=== PATIENT | male | born 1945 | race Caucasian/White ===

== ENCOUNTER 2016-10-03 14:29 | Inpatient (IN) | payer MEDICARE, OTHER ==
[~2016-10-03] VITALS: Ht 188 cm; Wt 91.2 kg
[~2016-10-03 14:29] MED LIST: ACETAMINOPHEN325 MG PO; BAYER CHEWABLE81 MG PO; CIPRO500 MG PO; COUMADIN3 MG PO; COUMADIN5 MG PO; COUMADIN6 MG PO; CYCLOBENZAPRINE5 MG PO; FIBRICOR105 MG PO; FLAGYL500 MG PO; FLOMAX0.4 MG PO; GLIPIZIDE10 MG PO; GLUCOPHAGE500 MG PO; GLUCOTROL XL 1010 MG PO; HYDROCODONE-APA1 TAB PO; KLOR-CON 1010 MEQ PO; KLOR-CON M2020 MEQ PO; LASIX40 MG PO; LEVAQUIN750 MG PO; LISINOPRIL10 MG PO; MIRALAX17 GM PO; NEURONTIN 300300 MG PO; PERCOCET 10/3251 TA1 PO; PLAVIX75 MG PO; PRAVACHOL20 MG PO; PRILOSEC20 MG PO; PRINIVIL20 MG PO; PROTONIX40 MG PO; TOPROL XL50 MG PO; TRIPLE ANTIB28.35 GM TP; ULTRAM50 MG PO; VANCOMYCIN 1 GM/1 G1 IV; ZOFRAN4 MG PO
[2016-10-03 22:09] VITALS: BP 116/72; BMI 25.8
[2016-10-04] VITALS: BP 122/71
[2016-10-04 00:56] LABS: BASOPHILS 0.3 % (0.0-2.0); EOSINOPHILS 0.7 % (0-7); HEMATOCRIT 38.3 % (42.0-54.0); HEMOGLOBIN 12.3 g/dL (13.5-17.5); LYMPHOCYTES 22.7 % (15-50); MCH 27.3 pg (26.0-34.0); MCHC 32.1 g/dL (31.0-37.0); MCV 85.1 fL (80.0-100.0); MEAN PLATELET VOLUME 9.2 fL (7.4-10.4); MONOCYTES 14.7 % (2-11); NEUTROPHILS 60.6 % (40-80); RDW 15.4 % (11.5-14.5); WBC 2.9 10x3/uL (4.8-10.8)
[2016-10-04 01:01] LABS: INR 2.39 (0.85-1.17); PROTIME 26.2 SECONDS (11.6-15.0)
[2016-10-04 01:04] LABS: ALBUMIN 2.9 g/dL (3.4-5.0); ALKALINE PHOSPHATASE 40 U/L (46-116); ALT (SGPT) 26 U/L (10-68); CALC OSMOLALITY 269 mosm/kg (275-300); CALCIUM 8.3 mg/dL (8.5-10.1); CARBON DIOXIDE 23.4 mmol/L (21.0-32.0); CHLORIDE - SERUM 102 mmol/L (98-107); POTASSIUM - SERUM 3.3 mmol/L (3.5-5.1); PROTEIN - SERUM 6.8 g/dL (6.4-8.2); SODIUM 136 mmol/L (136-145); UREA NITROGEN 13 mg/dL (7-18); eGFR NON AFRICAN AMERICAN 78 mL/min (90-120)
[2016-10-04 01:05] LABS: PLATELET COUNT 151 10x3/uL (130-400)
[2016-10-04 01:07] LABS: GLUCOSE 67 mg/dL (74-106)
[2016-10-04 01:17] LABS: CKMB 0.8 U/L (0.0-3.6)
--- NOTE | 2016-10-04 02:57 | NUR ---
1999)PATIENT APPEARED VIA W/C WITH ER POT FLUXER TO RM 2225."STATES DIRECT ADMIT FROM DR. BAI OFFICE.ALERT ORIENTED X3. IN ATTENDANCE.LEFT AKA OBSERVED.IV STARTED LEFT FOREARM X3 ATTEMPTS. DENIES PAIN OR NAUSEA AT PRESENT TIME.
[2016-10-04 04:00] VITALS: BP 145/78
--- NOTE | 2016-10-04 07:00 | NUR ---
PT REC'D FROM CHARO NEWMAN. AAOX4. LAYING IN BED WITH EYES CLOSED. IN ROOM. NO COMPLAINTS OF PAIN. ABD ROUND, FIRM, WITH SOME TENDERNESS TO PALPATION, BOWEL SOUNDS ACTIVE. OLD LT AKA. ALERTED BY CHARO NEWMAN, THAT CURRENT FSBS IS 67. WILL CONTINUE TO MONITOR. BED LOW, CALL LIGHT IN REACH, WILL CPOC.
[2016-10-04 07:17] LABS: INR 2.59 (0.85-1.17); PROTIME 27.9 SECONDS (11.6-15.0)
[2016-10-04 07:42] LABS: CKMB 0.9 U/L (0.0-3.6)
[2016-10-04 09:06] VITALS: BP 132/77
--- NOTE | 2016-10-04 10:15 | NUR ---
MORNING MEDS PASSED. PROVIDED PT WITH ORANGE JUICE TO DRINK WITH MEDS TO HELP BRING BLOOD SUGAR UP. WILL CONTINUE TO MONITOR.
--- NOTE | 2016-10-04 10:25 | NUR ---
CURRENT FSBS 84. NO INSULIN GIVEN PER SS AND NPO STATUS. WILL CPOC.
[2016-10-04 11:01] VITALS: Ht 188 cm; Wt 91.2 kg
[2016-10-04 12:26] VITALS: BP 132/77
--- NOTE | 2016-10-04 13:00 | NUR ---
CURRENT FSBS 92. NO INSULIN GIVEN PER SS AND NPO STATUS. WILL CPOC.
[2016-10-04 14:31] LABS: CKMB 1.1 U/L (0.0-3.6)
[2016-10-04 16:13] VITALS: BP 127/77
--- NOTE | 2016-10-04 17:40 | NUR ---
CURRENT FSBS 71. NO INSULIN GIVEN PER SS AND NPO STATUS. WILL CPOC.
--- NOTE | 2016-10-04 17:47 | NUR ---
QUIET IN ROOM AT PRESENT RESP EVEN AND UNLABORED AT PRESENT N/C.
[2016-10-04 19:00] VITALS: BP 157/81
--- NOTE | 2016-10-04 20:26 | NUR ---
REPORT GIVEN TO CHARO NEWMAN.
--- NOTE | 2016-10-05 01:10 | NUR ---
PT SLEEPING. NO SIGNS OF DISTRESS. RESPIRATIONS EVEN AND UNLABORED. BED LOW, CALL LIGHT IN REACH.
[2016-10-05 04:00] VITALS: BP 135/74
--- NOTE | 2016-10-05 07:00 | NUR ---
PT REC'D FROM CHARO NEWMAN. RESTING IN BED WITH EYES CLOSED. IN ROOM. NO SIGNS OF DISTRESS. RESP EVEN AND UNLABORED. BED LOW, CALL LIGHT IN REACH, WILL CPOC.
[2016-10-05 07:36] LABS: BASOPHILS 0.2 % (0.0-2.0); EOSINOPHILS 0.5 % (0-7); HEMATOCRIT 37.5 % (42.0-54.0); HEMOGLOBIN 11.9 g/dL (13.5-17.5); IMMATURE GRANULOCYTES 0.5 % (0-5); MCHC 31.7 g/dL (31.0-37.0); MCV 85.2 fL (80.0-100.0); MEAN PLATELET VOLUME 9.4 fL (7.4-10.4); MONOCYTES 17.8 % (2-11); PLATELET COUNT 160 10x3/uL (130-400); RDW 15.3 % (11.5-14.5); WBC 4.2 10x3/uL (4.8-10.8)
[2016-10-05 07:39] LABS: INR 2.72 (0.85-1.17)
[2016-10-05 08:00] LABS: ALBUMIN 2.5 g/dL (3.4-5.0); ALKALINE PHOSPHATASE 38 U/L (46-116); AMYLASE - SERUM 27 U/L (25-115); CALC OSMOLALITY 271 mosm/kg (275-300); CALCIUM 7.7 mg/dL (8.5-10.1); CARBON DIOXIDE 21.7 mmol/L (21.0-32.0); CHLORIDE - SERUM 104 mmol/L (98-107); GLUCOSE 78 mg/dL (74-106); LIPASE 86 U/L (73-393); MAGNESIUM - SERUM 1.5 mg/dL (1.8-2.4); PHOSPHOROUS 2.6 mg/dL (2.5-4.9); PROTEIN - SERUM 6.1 g/dL (6.4-8.2); SODIUM 137 mmol/L (136-145); THYROID STIMULATING HORMONE 1.25 uIU/mL (0.36-3.74); UREA NITROGEN 11 mg/dL (7-18); eGFR NON AFRICAN AMERICAN 78 mL/min (90-120)
[2016-10-05 08:02] LABS: ALT (SGPT) 34 U/L (10-68); POTASSIUM - SERUM 3.8 mmol/L (3.5-5.1)
[2016-10-05 08:22] VITALS: BP 159/98
--- NOTE | 2016-10-05 11:30 | NUR ---
MORNING MEDS PASSED. PT UP IN BED WATCHING TV. AAOX4. NO COMPLAINTS OF PAIN. ORANGE JUICE GIVEN WITH MORNING MEDS TO PREVENT BLOOD SUGAR FROM DROPPING. CURRENT FSBS 88. NO INSULIN GIVEN PER SS AND NPO STATUS. BED LOW, CALL LIGHT IN REACH, WILL CPOC.
[2016-10-05 12:23] VITALS: BP 132/68
[2016-10-05 16:38] VITALS: BP 139/70
--- NOTE | 2016-10-05 17:50 | NUR ---
CURRENT FSBS 82. NO INSULIN GIVEN PER SS AND NPO STATUS. WILL CPOC.
[2016-10-05 18:21] LABS: APPEARANCE CLEAR (CLEAR); BILIRUBIN NEGATIVE (NEGATIVE); COLOR YELLOW (YELLOW); GLUCOSE NEGATIVE (NEGATIVE); KETONE NEGATIVE (NEGATIVE); LEUKOCYTE ESTERASE TRACE (NEGATIVE); NITRITE NEGATIVE (NEGATIVE); PROTEIN NEGATIVE (NEGATIVE); SPECIFIC GRAVITY 1.015 (1.005-1.020); UROBILINOGEN NORMAL (NORMAL)
[2016-10-05 18:22] LABS: BACTERIA NONE SEEN /hpf (NONE SEEN); EPITHELIAL CELLS NSEEN /hpf (0-5); RED CELLS - URINE 0-5 /hpf (0-5); WHITE CELLS - URINE 0-5 /hpf (0-5)
[2016-10-05 19:00] VITALS: BP 137/66
--- NOTE | 2016-10-05 19:39 | NUR ---
PT REPORT GIVEN TO CHARO NEWMAN.
--- NOTE | 2016-10-05 19:49 | NUR ---
REC'D. IN BED REMAINS AT BEDSIDE,REMAINS NPO PREVIOUSLY ORDERED.DENIES ANY PAIN OR DISCOMFORT AT PRESENT TIME WILL CONTINUE TO MONITOR FOR ANY CHGES. AND FOLLOW CURRENT PLAN OF CARE.
--- NOTE | 2016-10-06 01:55 | NUR ---
RESTING WITH EYES CLOSED, RESP WITH EASE, NO DISTRESS NOTED, SAFETY PRECAUTIONS IN PLACE, CL IN REACH
[2016-10-06 04:59] LABS: BASOPHILS 0.2 % (0.0-2.0); EOSINOPHILS 1.2 % (0-7); HEMATOCRIT 37.2 % (42.0-54.0); HEMOGLOBIN 11.8 g/dL (13.5-17.5); IMMATURE GRANULOCYTES 0.2 % (0-5); LYMPHOCYTES 14.9 % (15-50); MCH 26.8 pg (26.0-34.0); MCHC 31.7 g/dL (31.0-37.0); MCV 84.4 fL (80.0-100.0); MEAN PLATELET VOLUME 9.7 fL (7.4-10.4); MONOCYTES 14.7 % (2-11); NEUTROPHILS 68.8 % (40-80); PLATELET COUNT 151 10x3/uL (130-400); RBC 4.41 10x6/uL (4.20-6.10); RDW 15.6 % (11.5-14.5)
[2016-10-06 05:11] LABS: INR 2.78 (0.85-1.17); PROTIME 29.5 SECONDS (11.6-15.0)
[2016-10-06 05:32] LABS: ALBUMIN 2.6 g/dL (3.4-5.0); ALKALINE PHOSPHATASE 41 U/L (46-116); ALT (SGPT) 35 U/L (10-68); BILIRUBIN - TOTAL 0.48 mg/dL (0.2-1.3); CALC OSMOLALITY 276 mosm/kg (275-300); CALCIUM 7.8 mg/dL (8.5-10.1); CARBON DIOXIDE 19.9 mmol/L (21.0-32.0); CHLORIDE - SERUM 105 mmol/L (98-107); GLUCOSE 85 mg/dL (74-106); POTASSIUM - SERUM 3.9 mmol/L (3.5-5.1); PROTEIN - SERUM 5.6 g/dL (6.4-8.2); SODIUM 140 mmol/L (136-145); UREA NITROGEN 9 mg/dL (7-18); eGFR NON AFRICAN AMERICAN 78 mL/min (90-120)
--- NOTE | 2016-10-06 07:15 | NUR ---
SLEEPING QUIETLY AT PRESENT DENIES ANY NEEDS AT THIS TIME.
--- NOTE | 2016-10-06 09:00 | NUR ---
MEDS GIVEN WITH SIP OF H20 AT PRESENT.
[2016-10-06 10:20] VITALS: BP 125/68
--- NOTE | 2016-10-06 12:20 | NUR ---
Patient Name: HESHAM CARUSO Admission Status: Elective Accout number: [id number] Admission Date: 10-03-2016 : 1945 Admission Diagnosis: Attending: BUTCH Current LOS: 3 Anticipated DC Date: Planned Disposition: Home Primary Insurance: MEDICARE A & B Discharge Planning Comments: CM MET WITH PATIENT AND (RITA) WITH D/C NEEDS AND PLANS. STATED SHE WILL DRIVE PATIENT HOME AT DISCHARGE. PATIENT HAS A RAMP TO ENTER HOME AND NO STAIRS INSIDE. PATIENT HAS A WHEELCHAIR, HANDICAP SHOWER, AND BS COMMODE AT HOME IF NEEDED. PATIENTS PCP IS DR. BAI AND PHARMACY IS [facility] [address]. PATIENT DOES NOT WANT HOME HEALTH. CM WILL CONTINUE TO FOLLOW PATIENT WITH D/C NEEDS AND PLANS. PCP DR. [facility] [address] [phone]) RITA (SPOUSE) [phone] Sales Floor Manager: Ni Hartman Is the patient Alert and Oriented? Yes 0 * How many steps to enter\exit or inside your home? RAMP 0 * PCP DR. BAI 0 * Pharmacy [facility] [address] 0 * Preadmission Environment Home with Family 0 * ADLs Independent 0 * Equipment Bedside Commode Wheelchair 0 * Other Equipment HANDICAP SHOWER 0 * List name and contact numbers for known caregivers / representatives who currently or will assist patient after discharge: RITA (SPOUSE) [phone] 0 * Community resources currently utilized None 0 * Additional services required to return to the preadmission environment? Yes 0 * Can the patient safely return to the preadmission environment? Yes 0 * Has this patient been hospitalized within the prior 30 days at any hospital? No 0 Grand Total: 0
--- NOTE | 2016-10-06 13:00 | NUR ---
QUIET N/C AT PRESENT.
--- NOTE | 2016-10-06 13:49 | NUR ---
NUTRITION MONITORING & EVAL CHART REVIEWED. PT REMAINS NPO AT THIS TIME. WILL CONTINUE TO MONITOR PT PROGRESS. RD FOLLOWING
[2016-10-06 13:50] VITALS: BP 136/61
--- NOTE | 2016-10-06 15:00 | NUR ---
TO CT FOR TEST AT PRESENT.
--- NOTE | 2016-10-06 17:00 | NUR ---
CONT NPO AT PRESENT N/C VOICED AT PRESENT.
--- NOTE | 2016-10-06 19:00 | NUR ---
QUIET IN ROOM CONT NPO AT PRESENT DENIES ANY NEEDS AT THIS TIME AT BEDSIDE.
[2016-10-06 21:00] VITALS: BP 143/76
[2016-10-07 01:00] VITALS: BP 138/66
[2016-10-07 05:00] VITALS: BP 135/51
--- NOTE | 2016-10-07 05:49 | NUR ---
PT IN BED WITH NO DISTRESS. SIDE RAILS ARE UP X 2. BED IS LOW. CALL LIGHT IS IN REACH.
[2016-10-07 06:45] LABS: BASOPHILS 0.2 % (0.0-2.0); EOSINOPHILS 3.4 % (0-7); HEMATOCRIT 36.6 % (42.0-54.0); HEMOGLOBIN 11.6 g/dL (13.5-17.5); IMMATURE GRANULOCYTES 0.5 % (0-5); LYMPHOCYTES 18.6 % (15-50); MCH 26.8 pg (26.0-34.0); MCHC 31.7 g/dL (31.0-37.0); MCV 84.5 fL (80.0-100.0); MEAN PLATELET VOLUME 9.5 fL (7.4-10.4); MONOCYTES 14.8 % (2-11); NEUTROPHILS 62.5 % (40-80); PLATELET COUNT 147 10x3/uL (130-400); RBC 4.33 10x6/uL (4.20-6.10); RDW 15.5 % (11.5-14.5); WBC 4.4 10x3/uL (4.8-10.8)
[2016-10-07 06:52] LABS: INR 2.94 (0.85-1.17); PROTIME 30.9 SECONDS (11.6-15.0)
[2016-10-07 07:17] LABS: ALBUMIN 2.3 g/dL (3.4-5.0); ALKALINE PHOSPHATASE 37 U/L (46-116); BILIRUBIN - TOTAL 0.47 mg/dL (0.2-1.3); CALC OSMOLALITY 276 mosm/kg (275-300); CALCIUM 8.1 mg/dL (8.5-10.1); CHLORIDE - SERUM 106 mmol/L (98-107); CREATININE - SERUM 0.9 mg/dL (0.6-1.3); GLUCOSE 97 mg/dL (74-106); POTASSIUM - SERUM 3.8 mmol/L (3.5-5.1); PROTEIN - SERUM 5.7 g/dL (6.4-8.2); SODIUM 140 mmol/L (136-145); UREA NITROGEN 8 mg/dL (7-18); eGFR NON AFRICAN AMERICAN 88 mL/min (90-120)
[2016-10-07 07:22] LABS: ALT (SGPT) 26 U/L (10-68)
--- NOTE | 2016-10-07 08:00 | NUR ---
PT AWAKE AND ALERT ORIENTED X 3 LUNG CLEAR BILATERALLY ABD SOFT WITH SOME TENDERNESS NOTED WITH PALPATION. REMAINS NPO EXCEPT FOR MEDS. WILL CONTINUE TO MONITOR.
[2016-10-07 08:29] VITALS: BP 127/71
--- NOTE | 2016-10-07 13:12 | NUR ---
PT WITH NO DISTRESS NOTED VOICES ALL NEEDS TO STAFF. WILL CONTINUE TO MONITOR.
[2016-10-07 13:36] VITALS: BP 140/72
[2016-10-07 15:59] VITALS: BP 110/53
[2016-10-07 19:00] VITALS: BP 141/71
[2016-10-08 04:00] VITALS: BP 133/77
[2016-10-08 05:17] LABS: BASOPHILS 0.2 % (0.0-2.0); EOSINOPHILS 2.9 % (0-7); HEMATOCRIT 35.7 % (42.0-54.0); HEMOGLOBIN 11.5 g/dL (13.5-17.5); IMMATURE GRANULOCYTES 0.6 % (0-5); LYMPHOCYTES 20.8 % (15-50); MCH 27.1 pg (26.0-34.0); MCHC 32.2 g/dL (31.0-37.0); MEAN PLATELET VOLUME 9.4 fL (7.4-10.4); MONOCYTES 13.9 % (2-11); NEUTROPHILS 61.6 % (40-80); PLATELET COUNT 171 10x3/uL (130-400); RBC 4.25 10x6/uL (4.20-6.10); RDW 15.6 % (11.5-14.5); WBC 4.8 10x3/uL (4.8-10.8)
[2016-10-08 05:29] LABS: PROTIME 25.7 SECONDS (11.6-15.0)
[2016-10-08 05:31] LABS: INR 2.34 (0.85-1.17)
[2016-10-08 05:47] LABS: ALBUMIN 2.4 g/dL (3.4-5.0); ALKALINE PHOSPHATASE 41 U/L (46-116); ALT (SGPT) 24 U/L (10-68); BILIRUBIN - TOTAL 0.36 mg/dL (0.2-1.3); CALC OSMOLALITY 279 mosm/kg (275-300); CARBON DIOXIDE 22.8 mmol/L (21.0-32.0); CHLORIDE - SERUM 108 mmol/L (98-107); CREATININE - SERUM 0.8 mg/dL (0.6-1.3); GLUCOSE 137 mg/dL (74-106); POTASSIUM - SERUM 3.9 mmol/L (3.5-5.1); PROTEIN - SERUM 5.3 g/dL (6.4-8.2); SODIUM 140 mmol/L (136-145); UREA NITROGEN 9 mg/dL (7-18); eGFR NON AFRICAN AMERICAN > 90 mL/min (90-120)
[2016-10-08 08:24] VITALS: BP 146/76
--- NOTE | 2016-10-08 08:30 | NUR ---
REPORT RECIEVED ASSUMED CARE. PATIENT IN BED WITH IV INTACT. NO COMPLAINTS AT THIS TIME. FAMILY AT BEDSIDE. CALL LIGHT WITHIN REACH.
[2016-10-08] MEDS ORDERED: CIPRO500 MG PO (12:32)
[2016-10-08] MEDS ORDERED: PEPCID20 MG PO (12:40)
--- NOTE | 2016-10-08 14:00 | NUR ---
PATIENT RECIEVED DISCHARGE INSTRUCTIONS. IV REMOVED WITH CATH TIP INTACT. NO QUESTIONS AT THIS TIME. FAMILY AT BEDSIDE. PRESCRIPTIONS GIVEN TO PATIENT. CALL LIGHT WITHIN REACH. AWAITING WC FOR DC.
--- NOTE | 2016-10-08 15:27 | DS ---
PATIENT:HESHAM CARUSO :41 MEDICAL RECORD: [id number] DISCHARGE SUMMARY ADMISSION DATE: 10/03/16 DISCHARGE DATE: DATE OF ADMISSION: 10/03/2016 DATE OF DISCHARGE: 10/08/2016 ADMITTING DIAGNOSES: 1. Abdominal abscess. 2. Abdominal pain. 3. Leukopenia. 4. Elevated PSA. 5. Ileus. 6. Diverticulitis. 7. 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 8. Coronary artery disease, chronic problem. 9. Diabetes. 10. Hyperlipidemia. 11. Hypertension. 12. Peripheral vascular disease on chronic Coumadin. 13. History of aortic aneurysm. HOSPITAL COURSE: This is a 71-year-old white male, patient of Dr. Toro, admitted from the office with diagnoses as outlined above. Details are well-outlined in the history of the present illness, H&P. All events, lab procedures, diagnostic testing are well documented in the records. The patient was admitted, started on IV antibiotics. CONSULTANTS: 1. Dr. Woods, interventional radiology. His recommendations were followed. He felt the abscess in the abdomen was too small to drain, please refer to his note. 2. Dr. Jalil Navarrete with surgery. His recommendations were followed as well. The left upper quadrant fluid collection is felt to be more consistent with hematoma or inflammatory phlegmon as oppose to drainable abscess. No treatment is necessary at this time except to continue antibiotics. 3. He was continued on Flagyl and Levaquin. Apparently, he had some diarrhea during the stay that was felt due to a combination of metformin, omeprazole, and cholecystectomy. Dr. Henderson rounding for Dr. Navarrete recommended stopping omeprazole and adding Pepcid. His antibiotics were continued for urinary tract infection. He was also felt to have prostatitis, had elevated PSA levels. INRs were followed daily. He remained therapeutic. He is stable for dismissal home today. He already has about a week's worth of Flagyl and Cipro at home. He will complete that plus an additional 21-day course of Cipro. He is stable for dismissal home. DIAGNOSES AT DISCHARGE: 1. Abdominal abscess. 2. Abdominal pain. 3. Leukopenia. 4. Ileus. 5. Diverticulitis. 6. Atherosclerosis of [place] arteries of extremity with rest pain that is a DISCHARGE SUMMARY REPORT [id number] HESHAM CARUSO chronic problem. 7. Coronary artery disease, chronic problem. 8. Diabetes. 9. Hyperlipidemia. 10. Hypertension. 11. Peripheral vascular disease on chronic Coumadin. 12. History of aortic aneurysm. 13. Elevated PSA and urinary tract infection felt more likely to be prostatitis. 14. Abdominal hematoma. Greater than 30 minutes was spent on this discharge. TRANSINT:[id number] Voice Confirmation ID: [id number] DOCUMENT ID: [id number] Dictated By: JEANNETTE DIXON RN I have interviewed/examined the above patient and agree with these documented findings. ANGELINA RIGGINS MD at 1527 at 1554 CC: [id number] DICTATION DATE: 10/08/16 1240 ART CLASS MODEL: 10/08/16 1302 ADM IN [facility] [address] [id number]
--- NOTE | 2016-10-08 15:55 | NUR ---
LATE ENTRY: PATIENT DISCHARGED HOME TODAY - DRIVING HIM HOME. PATIENT REF HOME HEALTH.
== END 2016-10-08 15:34 | disposition home or self-care (01) | DRG 388 ==
LOC: D.CT 14:29 → D.MS 19:36
PROVIDERS: Family Medicine; ADMIT Family Medicine
DX: K56.7 Ileus, unspecified (principal); K65.1 Peritoneal abscess; K57.92 Diverticulitis of intestine, part unspecified, without perforation or abscess without bleeding; N39.0 Urinary tract infection, site not specified; I70.229 Atherosclerosis of native arteries of extremities with rest pain, unspecified extremity; E11.9 Type 2 diabetes mellitus without complications; I25.10 Atherosclerotic heart disease of native coronary artery without angina pectoris; I10 Essential (primary) hypertension; N41.9 Inflammatory disease of prostate, unspecified; I71.4 Abdominal aortic aneurysm, without rupture; E78.5 Hyperlipidemia, unspecified

== ENCOUNTER → 2017-07-27 08:39 | Outpatient (CLI) | payer MEDICARE, OTHER ==
[2016-10-04 11:01] VITALS: BMI 25.8
[~2017-07-27 08:39] MED LIST changes: +PEPCID20 MG PO
== END | disposition home or self-care (01) ==
LOC: D.CT 08:39
DX: I71.4 Abdominal aortic aneurysm, without rupture (principal)

== ENCOUNTER → 2017-08-18 08:42 | Outpatient (CLI) | payer MEDICARE, OTHER ==
[2016-10-04 11:01] VITALS: BMI 25.8
--- NOTE | 2017-09-01 08:55 | EC ---
PATIENT:HESHAM CARUSO DATE OF SERVICE: 08/18/17 SEX: M MEDICAL RECORD: [id number] DATE OF : 41 LOCATION:[facility] AGE OF PATIENT: 72 ADMISSION DATE: 08/18/17 REFERRING PHYSICIAN: INTERPRETING PHYSICIAN: VADIM DIAZ MD ECHOCARDIOGRAM REPORT ECHO CHARGES 4 ECHO COMPLETE CLINICAL DIAGNOSIS: CAD/CABG/BRADYCARDIA/CHEST PAIN/PVD ECHOCARDIOGRAPHIC MEASUREMENTS (adult normal given) AC root (d.<3.7cm) 4.2 cm LV Septum d (<1.2 cm> 1.3 cm Valve Excursion 2.0 cm LV Septum (systole) 1.5 cm Left Atria (s.<4.0cm> 3.7 cm LVPW d(<1.2cm) 1.4 cm RV (d.<2.3cm) 4.2 cm LVPW (sytole) 1.7 cm LV diastole(<5.6CM) 7.4 cm MV E-F(>70mm/sec) cm LV systole 5.9 cm LVOT Diameter 2.2 cm MV exc.(>10mm) 2.0 cm Est.ejection fraction (50-75%) % Pericardial Effusion N DOPPLER: LVIT cm/sec A 28.0 cm/sec E 80.0 cm/sec LA cm/sec RVSP 51 mmHg LVOT 108 cm/sec AOP1/2T m/s Asc. Ao 132 cm/sec RVOT 55 cm/sec RA cm/sec PA 116 cm/sec AV Gradient Peak 9.94 mmHg AV Mean 3.55 mmHg AV Area 3.9 cm MV Gradient Peak 5.18 mmHg MV Mean 1.45 mmHg MV Area cm COMMENTS: Printing Roller Handler: Fan CASTRO Exhibition Organiser: 4 Dr. Diaz TAPE# PACS DATE OF SERVICE: 08/18/2017 PROCEDURE: Transthoracic echocardiogram. FINDINGS: 1. Left ventricle is mildly dilated. There is inferior basilar dyskinesis. The overall ejection fraction is 35% to 40%. 2. The left atrium is mildly dilated. There is mild mitral regurgitation. 3. Pulmonic valve shows moderate pulmonic insufficiency. 4. The tricuspid valve was not well visualized. There is mild tricuspid ECHOCARDIOGRAM REPORT [id number] HESHAM CARUSO regurgitation. The RVSP was difficult to ascertain. There were no very good envelopes of tricuspid regurgitation for estimation, but appears to be mildly elevated. 5. The right atrium is shown to be mildly dilated. There is moderate dilatation of the right ventricle. Aortic valve again was difficult to visualize. It is grossly normal. There is trace aortic insufficiency. 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 Overall ejection fraction is moderately reduced. There is dilatation of the right-sided structures and possibly mild elevation in the pulmonary pressures. TRANSINT:[id number] Voice Confirmation ID: [id number] DOCUMENT ID: [id number] VADIM DIAZ MD at 0855 CC: [id number] DICTATION DATE: 08/20/17 0801 SIGNAL TECHNICIAN: 08/20/17 1010 [facility] CLI 08/18/17 [id number] [place] [address]
== END | disposition home or self-care (01) ==
LOC: D.ECHO 08:42
DX: I25.10 Atherosclerotic heart disease of native coronary artery without angina pectoris (principal); R07.9 Chest pain, unspecified; I73.9 Peripheral vascular disease, unspecified; R00.1 Bradycardia, unspecified

== ENCOUNTER → 2017-08-31 16:10 | Outpatient (CLI) | payer MEDICARE, OTHER ==
[2016-10-04 11:01] VITALS: BMI 25.8
[2017-08-31 20:27] LABS: CHOL - HDL RATIO 4.2 ratio (2.3-4.9); LDL-HDL RATIO 2.3 ratio (1.5-3.5)
== END | disposition home or self-care (01) ==
LOC: D.LABREF 16:10
PROVIDERS: Internal Medicine Cardiovascular Disease
DX: E78.5 Hyperlipidemia, unspecified (principal); I25.10 Atherosclerotic heart disease of native coronary artery without angina pectoris

== ENCOUNTER → 2017-10-21 16:47 | Outpatient (CLI) | payer MEDICARE, OTHER ==
[2016-10-04 11:01] VITALS: BMI 25.8
[2017-10-21 17:26] LABS: ALBUMIN 4.2 g/dL (3.4-5.0); BILIRUBIN - DIRECT 0.19 mg/dL (0.00-0.30); BILIRUBIN - INDIRECT 0.33 mg/dL (0.00-1.00); BILIRUBIN - TOTAL 0.52 mg/dL (0.2-1.3); CHOL - HDL RATIO 4.3 ratio (2.3-4.9); LDL-HDL RATIO 2.5 ratio (1.5-3.5); PROTEIN - SERUM 7.5 g/dL (6.4-8.2)
== END | disposition home or self-care (01) ==
LOC: D.LABREF 16:47
PROVIDERS: Internal Medicine Cardiovascular Disease
DX: E78.5 Hyperlipidemia, unspecified (principal)

== ENCOUNTER 2017-11-16 17:38 | Inpatient (IN) | payer MEDICARE, OTHER ==
--- NOTE | ~2017-11-16 | HEMODYNAMI ---
PATIENT:HESHAM CARUSO MEDICAL RECORD: [id number] : 41 [address] [id number] ADMISSION DATE: 11/16/17 Generatedon:11/17/201713:02 Patient name: HESHAM CARUSO Patient #: [id number] SSN: : 1945 Date of study: 11/17/2017 Page: Of Hemodynamic Procedure Report Patient Data Patient Demographics Procedure consent was obtained First Name: HESHAM Gender: Male Last Name: SHADY : 1945 [facility] Initial: CARLOTA Age: 72 year(s) Patient #: [id number] Race: Additional ID: [id number] Contact details Address: [address] [address] State: [place] City: [place] Zip code: [address] Past Medical History Allergies: No known allergies Admission Admission Data Admission Date: 11/16/2017 Admission Time: 21:21 Room #: D.2136 Lab Results Lab Result Date: 11/17/2017 Lab Result Time: 0:00 Biochemistry Name Units Result Min Max BUN mg/dl 16 --(---*)-- 7 18 Creatinine mg/dl 1.1 --(--*-)-- 0.6 1.3 CBC Name Units Result Min Max Hemoglobin g/dl 13.8 --(*---)-- 13.5 17.5 Procedure Procedure Types Cath Procedure Diagnostic Procedure LHC LH w/Coronaries w/Grafts PCI Procedure Coronary Stent Coronary Stent Initial Miscellaneous Procedures Moderate Sedation up to 45 minutes Peripheral Cath Diagnostic Procedure Cath Peripheral Xjwqv-Eyiztnr-Jdc-Off Procedure Description Procedure Date Procedure Date: 11/17/2017 Procedure Start Time: 12:03 Procedure End Time: 13:01 Procedure Staff Name Function Poli Walter MD Performing Physician Cathy Ford RT Monitor Kane Suarez RN Nurse Bienvenido Isidro RT Scrub Procedure Data Cath Procedure Fluoroscopy Diagnostic fluoroscopy Total fluoroscopy Time: time: 16.7 min 16.7 min Diagnostic fluoroscopy Total fluoroscopy dose: dose: 1619 mGy 1619 mGy Contrast Material Contrast Material Type Amount (ml) Isovue 300 209 Entry Location Entry Primary Successful Side Size Upsize Upsize Entry Closure Succes sful Closure Location (Fr) 1 (Fr) 2 (Fr) Remarks Device Remarks Femoral Right 5 Fr 6 Fr 6 Fr Exoseal artery Short Long Estimated blood loss: 10 ml Diagnostic catheters Device Type Used For End Catheter Placement MULTIPACK Pigtail 5 Fr Procedure catheter MULTIPACK JL 4.0 5Fr Procedure catheter MULTIPACK 3DRC 5Fr Procedure catheter Procedure Complications No complications Procedure Medications Medication Administration Route Dosage Oxygen NC 2 l/min Heparin Flush Bag added to field 2 bags (1000units/500ml NS) 0.9% NaCl I.V. 100 ml/hr Fentanyl I.V. 50 mcg Versed I.V. 1 mg Fentanyl I.V. 50 mcg Versed I.V. 1 mg Heparin Bolus I.V. 4000 units Integrilin (Bolus I.V. 8.5 ml 2mg/ml) Integrilin (Bolus wasted 1.5 ml 2mg/ml) Plavix P.O. 600 mg Hemodynamics Rest HGB: 13.8 (g/dl) Heart Rate: 74 (bpm) Snapshots Pre Cath Intra NCS Post Cath Vital Signs Time Heart Resp SPO2 etCO2 NIBP (mmHg) Rhythm Pain Sedation Rate (ipm) (%) (mmHg) Status Level (bpm) 11:50:02 73 16 98 0 162/90(133) NSR 0 (11) 10(A) , No pain 11:54:42 72 16 96 0 144/82(131) NSR 0 (11) 10(A) , No pain 11:59:21 74 15 94 24.1 144/84(120) NSR 0 (11) 10(A) , No pain 12:04:04 71 16 97 32.4 149/73(130) NSR 0 (11) 9(A) , No pain 12:08:45 73 15 91 33.1 145/83(119) NSR 0 (11) 9(A) , No pain 12:13:27 76 16 95 0 131/74(109) NSR 0 (11) 9(A) , No pain 12:18:08 76 16 93 24.1 144/68(97) NSR 0 (11) 9(A) , No pain 12:22:51 75 16 96 17.3 142/70(105) NSR 0 (11) 9(A) , No pain 12:27:31 74 19 94 13.5 134/70(111) NSR 0 (11) 9(A) , No pain 12:32:12 76 17 96 14.3 138/74(101) NSR 0 (11) 9(A) , No pain 12:36:50 78 15 95 29.4 144/80(117) NSR 0 (11) 9(A) , No pain 12:41:27 75 15 96 27.8 138/86(125) NSR 0 (11) 9(A) , No pain 12:46:05 79 16 97 27.8 149/81(117) NSR 0 (11) 10(A) , No pain 12:50:44 79 16 96 26.3 148/92(121) NSR 0 (11) 10(A) , No pain 12:51:52 80 16 97 34.6 154/93(141) NSR 0 (11) 10(A) , No pain 12:56:34 79 11 33.8 154/89(139) NSR 0 (11) 10(A) , No pain 13:01:17 79 10 31.6 151/87(138) NSR 0 (11) 10(A) , No pain Medications Time Medication Route Dose Verified Delivered Reason Notes Effectiveness by by 11:48:50 Oxygen NC 2 Poli Donnellyy Per physician l/min Jose Angel Suarez RN 11:48:58 Heparin Flush added 2 Poli Kane used for Bag to bags JoseA ngel Suarez RN procedure (1000units/500ml field NS) 11:49:07 0.9% NaCl I.V. 100 Poli Kane Per physician ml/hr Jose Angel Suarez RN 11:54:55 Fentanyl I.V. 50 Poli Kane for sedation mcg Jose Angel Suarez RN 11:55:02 Versed I.V. 1 mg Poli Donnellyy for sedation Jose Angel Suarez RN 12:03:19 Fentanyl I.V. 50 Poli Middleton for sedation mcg Jose Angel Suarez RN 12:03:58 Versed I.V. 1 mg Poli Middleton for sedation Tauth MD Suarez RN 12:24:04 Heparin Bolus I.V. 4000 Poli Middleton for units Jose Angel Suarez RN anticoagulation 12:24:19 Integrilin I.V. 8.5 Poli Middleton for (Bolus 2mg/ml) ml Jose Angel Suarez RN anticoagulation 12:24:30 Integrilin wasted 1.5 Poli Middleton for (Bolus 2mg/ml) ml Jose Angel Suarez RN anticoagulation 12:50:19 Plavix P.O. 600 Poli Middleton for mg Jose Angel Suarez RN antiplatelet therapy Procedure Log Time Note 11:27:54 Time tracking: Regular hours 11::59 Plan of Care:Hemodynamics will remain stable., Cardiac rhythm will remain stable., Comfort level will be maintained., Respiratory function will remain adequate., Patient/ family verbilizes understanding of procedure., Procedure tolerated without complication., Recovers from procedure without complications.. 11:28:02 Time tracking: Regular hours 11:28:03 Signed procedure consent form obtained from patient. 11::28 Lab Result : BUN 16 mg/dl 11::28 Lab Result : Creatinine 1.1 mg/dl 11::28 Lab Result : Hemoglobin 13.8 g/dl 11:29:34 Cathy Ford RT(R) sent for patient. Start room use. 11:48:50 Oxygen 2 l/min NC was administered by Kane Suarez RN; Per physician; 11:48:58 Heparin Flush Bag (1000units/500ml NS) 2 bags added to field was administered by Kane Suarez RN; used for procedure; 11:49:03 Patient received from Med II to CCL 1 Alert and oriented. Tansferred to table in Supine position. 11:49:07 0.9% NaCl 100 ml/hr I.V. was administered by Kane Suarez RN; Per physician; 11:49:08 Warm blankets applied, and hamiltno hugger turned on for patient comfort. 11:49:08 Correct patient and procedure confirmed by team. 11:49:09 ECG and BP/O2 sat monitors applied to patient. 11:49:11 Vital chart was started 11:49:12 Baseline sample Acquired. 11:49:18 Rhythm: sinus rhythm 11:53:18 Full Disclosure recording started 11:53:33 H&P Date Dictated: 11/17/2017 New H&P dictated by physician.. 11:53:34 Pre-procedure instructions explained to patient. 11:53:38 Family in patients room. 11:53:39 Patient NPO since Midnight. 11:53:46 Patient allergic to No known allergies 11:53:48 Is the patient allergic to Iodine/contrast media? No. 11:53:49 Is patient on blood thinner?Yes 11:54:01 COUMADIN HELD SINCE THURSDAY 11:54:03 Patient diabetic? Yes. 11:54:04 If diabetic: On Metformin? Yes 11:54:06 If on Metformin: Last Dose? 11/16/2017 11:54:09 Previous problem with sedation/anesthesia? No ? 11:54:10 Snore? Yes 11:54:11 Sleep apnea? No 11:54:12 Deviated septum? No 11:54:13 Opens mouth fully? Yes 11:54:13 Sticks out tongue? Yes 11:54:15 Airway obstruction? No ? 11:54:18 Dentures? No ? 11:54:20 Pre procedure: right dorsailis pedis pulse 2+ Normal; easily identifiable; not easily obliterated 11:54:23 Patient pain scale 0/10 ?. 11:54:32 IV patent on arrival in left forearm with 0.9% NaCl at [facility]. 11:54:35 Lab results completed and on chart. 11:54:38 Right groin area was prepped with chlora-prep and draped in sterile fashion 11:54:40 Alarms reviewed by R. N. 11:54:41 Sharps counted by scrub and verified by R.N. 11:54:43 --------ALL STOP TIME OUT------ 11:54:43 Final Timeout: patient, procedure, and site verified with staff and physician. All members of the team are in agreement. 11:54:45 Right groin site verified by team. 11:54:48 Physical assessment completed. ASA score P 2 - A patient with mild systemic disease as per Poli Walter MD. 11:54:50 Sedation plan: IV Moderate Sedation Medication:Versed, Fentanyl 11:54:55 Fentanyl 50 mcg I.V. was administered by Kane Suarez RN; for sedation; 11:55:02 Versed 1 mg I.V. was administered by Kane Suarez RN; for sedation; 11:56:28 Use device set Femoral Dx 11:56:30 ACIST Syringe (94372) opened to sterile field. 11:56:31 Bag Decanter (2002S) opened to sterile field. 11:56:35 ACIST Hand Control (31622) opened to sterile field. 11:56:36 ACIST Manifold (58351) opened to sterile field. 11:56:39 PERCUTANEOUS ENTRY 19GA needle opened to sterile field. 11:56:40 Tegaderm 4 x 4 (1626W) opened to sterile field. 11:56:43 Medline Cath Pack ([id number]) opened to sterile field. 11:56:44 SHEATH 5FR [place] (JCH083) opened to sterile field. 11:56:46 DIAGNOSTIC WIRE .035 260cm J wire (093460) opened to sterile field. 11:56:47 DIAGNOSTIC Multipack 5Fr catheter set (RI3925) opened to sterile field. 12:00:50 Zero performed for pressure channel P1 12:02:27 Procedure started. 12:03:19 Fentanyl 50 mcg I.V. was administered by Kane Suarez RN; for sedation; 12:03:21 Local anesthetic to right femoral artery with Lidocaine 2% by Poli Walter MD.INITIAL ACCESS ONLY 12:03:58 Versed 1 mg I.V. was administered by Kane Suarez RN; for sedation; 12:04:45 A 5 Fr sheath was inserted into the Right Femoral artery 12:05:35 GLIDE WIRE Angled Super Stiff 180cm (GW3059) opened to sterile field. 12:06:19 TORQUE DEVICE PLASTIC .038 ( TD01) opened to sterile field. 12:06:38 SHEATH 6FR [place] (YKW871) opened to sterile field. 12:07:09 Sheath upsized to a 6 Fr Short. 12:07:24 SHEATH 6FR Destination (RSR01) opened to sterile field. 12:08:08 DESTINATION 6FR USED DUE TO PATIENT ANATOMY 12:09:12 SHEATH 6FR Destination (RSR01) opened to sterile field. 12:09:40 SECOND DESTINATION 6FR OPENED. FIRST SHEATH BENT 12:09:51 Sheath upsized to a 6 Fr Long. 12:11:00 A MULTIPACK Pigtail 5 Fr catheter was advanced over the wire and used for Procedure. 12:11:30 LV gram done using MAGDALENO 12:11:34 Injector settings: Ml/sec: 10, Volume: 20, 12:12:03 EF : 30 % 12:12:22 PIGTAIL PULLED DOWN TO DO RUN OFF ANGIO 12:12:54 Left leg runoff performed. 12:13:09 Right leg runoff performed. 12:13:21 Catheter removed. 12:13:55 A MULTIPACK JL 4.0 5Fr catheter was advanced over the wire and used for Procedure. 12:14:53 LCA angiography performed. 12:15:11 Catheter removed. 12:15:23 A MULTIPACK 3DRC 5Fr catheter was advanced over the wire and used for Procedure. 12:15:32 INFLATOR [place]it BasixCompak (PV5218) opened to sterile field. 12:16:43 RAMON to LAD angiography performed. 12:17:36 GLIDE WIRE STIFF ADVANCED WITH 3DRC TO VISUALIZED [place] 12:18:12 [place] to DISTAL RCA ANGIOGRAPHY PERFORMED. 12:18:53 [place] TO DIAG ANGIOGRAPHY PERFORMED 12:18:55 [place] RCA CLOSED 12:20:11 Catheter removed. 12:20:28 WHISPER 300cm guide wire ([id number]) opened to sterile field. 12:23:06 GUIDE 6FR XBLAD 3.5 catheter ([id number]) opened to sterile field. 12:23:19 6 Fr XBLAD 3.5 guide catheter was inserted over the wire 12:23:24 WHISPER 300 wire advanced. 12:24:04 Heparin Bolus 4000 units I.V. was administered by Kane Suarez RN; for anticoagulation; 12:24:19 Integrilin (Bolus 2mg/ml) 8.5 ml I.V. was administered by Kane Suarez RN; for anticoagulation; 12:24:30 Integrilin (Bolus 2mg/ml) 1.5 ml wasted was administered by Kane Suarez RN; for anticoagulation; 12:27:29 The EUPHORA 3.0 x 20 Balloon ([id number]) was advanced and then removed because of failure to cross lesion 12:27:52 Wire removed. 12:27:53 Guide catheter removed. 12:28:44 CHOICE PT Extra Support J 300cm guide wire ([id number]) opened to sterile field. 12:28:58 GUIDE 6FR EBU 4.0 SH catheter ([id number]) opened to sterile field. 12:29:09 6 Fr EBU 4 guide catheter was inserted over the wire 12:30:19 CHOICE PT ES 300 wire advanced. 12:31:07 Wire advanced across lesion. 12:32:53 Inflation number: 1 A EUPHORA 3.0 x 20 Balloon ([id number]) was prepped and advanced across the Mid CX, then inflated to 17 LEN for 0:10 (min:sec). 12:33:15 Inflation number: 2 The EUPHORA 3.0 x 20 Balloon ([id number]) was reinflated across the Mid CX, to 19 LEN for 0:10 (min:sec). 12:33:59 Inflation number: 3 The EUPHORA 3.0 x 20 Balloon ([id number]) was reinflated across the Mid CX, to 19 LEN for 0:10 (min:sec). 12:34:14 Inflation number: 4 The EUPHORA 3.0 x 20 Balloon ([id number]) was reinflated across the Mid CX, to 19 LEN for 0:10 (min:sec). 12:34:40 Balloon removed over the wire. 12:37:24 Inflation Number: 5 A PROMUS Premier 3.0 x 28 stent ([id number]) was prepped and advanced across the Mid CX. The stent was deployed at 17 LEN for 0:10 (min:sec). 12:38:03 Stent catheter was removed intact over wire. 12:40:17 WHISPER 300 wire advanced. 12:40:28 WHIPSER ADVANCED A PAULINA WIRE 12:43:18 Inflation Number: 6 A PROMUS Premier Rx 2.5 x 8 stent ([id number]) was prepped and advanced across the Mid CX. The stent was deployed at 21 LEN for 0:10 (min:sec). 12:43:35 Stent catheter was removed intact over wire. 12:43:36 Wire removed. 12:43:37 Wire removed. 12:43:37 Guide catheter removed. 12:44:57 LONG SHEATH EXCHANGED FOR A SHORT SHEATH 12:45:26 ANGIOGRAM RUNOFF OF THE RIGHT LEG 12:46:37 EXOSEAL 6Fr (EX600) opened to sterile field. 12:46:52 Sheath removed intact; hemostasis achieved with Exoseal to the Right Femoral artery. 12:46:58 Procedure ended.(Physican Out) 12:47:05 Fluoroscopy time 16.70 minutes. 12:47:09 Fluoroscopy dose: 1619 mGy 12:47:09 Flurop Dose total: 1619 12:47:13 Contrast amount:Isovue 300 209ml. 12:47:17 Post-op/insertion site Right Femoral artery dressed using a 4 x 4 and Tegaderm. 12:47:21 Post right femoral artery:stable, soft, clean and dry 12:47:25 Post procedure: right dorsailis pedis pulse 2+ Normal; easily identifiable; not easily obliterated. 12:47:29 Post-procedure physical assessment completed. ASA score P 2 - A patient with mild systemic disease as per Poli Walter MD. 12:47:32 Post procedure rhythm: unchanged. 12:47:34 Estimated blood loss: 10 ml 12:47:36 Post procedure instruction explained to patient.Patient verbalizes understanding. 12:47:36 Patient needs reinforcement of post procedure teaching. 12:48:48 Procedure type changed to Cath procedure, Diagnostic procedure, LHC, LHC w/Coronaries w/Grafts, PCI procedure, Coronary Stent, Coronary Stent Initial, Miscellaneous Procedures, Moderate Sedation up to 45 minutes, Peripheral Cath Diagnostic Procedure, Cath Peripheral, Hqpjj-Axcoabk-Epk-Off 12:50:19 Plavix 600 mg P.O. was administered by Kane Suarez RN; for antiplatelet therapy; 12:57:25 FEMSTOP Gold (D40355) opened to sterile field. 12:57:42 Femstop placed over the right femoral artery at 185 mmHg. Hemostasis achieved. 12:57:48 Post Procedure Pulses reassessed and unchanged 13:01:45 Procedure Complication : No complications 13:01:47 Vital chart was stopped 13:01:47 See physician's report for complete and final results. 13:01:49 Report given to PCU. 13:01:51 Patient transfered to PCU with Bed. 13::53 Procedure ended. 13::53 Full Disclosure recording stopped 13::57 End room use (Document Last) Intervention Summary Intervention Notes Time ActionType Lesion and Equipment Action# Pressure Duration Attributes Used 12:27:29 Discard EUPHORA 3.0 Balloon x 20 Balloon (INK7868S) 12:32:53 Inflate Mid CX EUPHORA 3.0 1 17 00:10 balloon x 20 Balloon (QKC6261R) 12:33:15 Reinflate Mid CX EUPHORA 3.0 2 19 00:10 balloon x 20 Balloon (AKM5168L) 12:33:59 Reinflate Mid CX EUPHORA 3.0 3 19 00:10 balloon x 20 Balloon (YVM6588P) 12:34:14 Reinflate Mid CX EUPHORA 3.0 4 19 00:10 balloon x 20 Balloon ([id number]) 12:37:24 Place stent Mid CX PROMUS 5 17 00:10 Premier 3.0 x 28 stent ([id number]) 12:43:18 Place stent Mid CX PROMUS 6 21 00:10 Premier Rx 2.5 x 8 stent ([id number]) Device Usage Item Name Manufacture Quantity Catalog Number Hospital Part Current Min imal Lot# / Charge Number Stock Stock Serial# Code ACIST Acist 1 35004 466671 040746 856212 20 Syringe Medical (10491) Systems Inc Bag Decanter Microtek 1 2001S 535192 03430 880543 5 () Medical Inc. ACIST Hand Acist 1 15270 076453 245455 527503 5 Control Medical (49110) Systems Inc ACIST Acist 1 95433 223552 739471 255946 5 Manifold Medical (91165) Systems Inc PERCUTANEOUS Cook Medical 1 K71526 867607 396986 5 ENTRY 19GA needle Tegaderm 4 x 3M 1 1626W 238268 622181 413371 5 4 (1626W) Medline Cath Cardinal 1 [id number] 139874 94541 683187 5 Pack Health ([id number]) SHEATH 5FR Terumo 1 CUW504 940319 560474 426058 40 [place] (ZYB153) DIAGNOSTIC St Devonte 1 880568 780293 433282 874217 30 WIRE .035 260cm J wire (739258) DIAGNOSTIC Cardinal 1 HM5849 568499 07277 261659 30 Multipack Health 5Fr catheter set (GR3871) GLIDE WIRE Terumo 1 FP5599 400787 472710 5 Angled Super Stiff 180cm (XO9297) TORQUE [place] 1 TD01 569096 039609 594868 5 DEVICE Scientific PLASTIC .038 ( TD01) SHEATH 6FR Terumo 1 UEC347 791907 387589 835356 40 [place] (UAJ196) SHEATH 6FR Terumo 2 RSR01 654521 67227 886236 5 Destination (RSR01) MULTIPACK Cardinal 1 374423 5 Pigtail 5 Fr Health catheter MULTIPACK JL Cardinal 1 057868 5 4.0 5Fr Health catheter MULTIPACK Cardinal 1 850312 5 3DRC 5Fr Health catheter INFLATOR [facility] 1 QS2674 174172 228868 809292 15 [facility] BasixCompak (OT4782) WHISPER [place] 1 [id number] 446263 191358 900362 5 300cm guide Vascular wire ([id number]) GUIDE 6FR Cardinal 1 29443427 290394 616736 577347 10 XBLAD 3.5 Health catheter (26068733) EUPHORA 3.0 Medtronic 1 SUO1668Q 109331 770621 895339 5 [id number] x 20 Balloon (VYL8486Z) CHOICE PT [place] 1 [id number] 443670 389494 906261 5 Extra Scientific Support J 300cm guide wire (7986507Q8) GUIDE 6FR Medtronic 1 [id number] 658779 76950 289574 1 EBU 4.0 SH catheter ([id number]) PROMUS [place] 1 [id number] 726466 510803 5 [id number] Premier 3.0 Scientific x 28 stent ([id number]) PROMUS [place] 1 [id number] 941224 137666 252304 5 [id number] Premier Rx Scientific 2.5 x 8 stent ([id number]) EXOSEAL 6Fr Cardinal 1 EX600 048090 399977 707628 10 (EX600) Health FEMSTOP Gold St [place] 1 U16386 114942 694900 474871 5 ([id number]) Signature Audit [place] Stage Time Signature Unsigned Intra-Procedure 11/17/2017 Cathy Ford 1:02:08 PM RT(R) Signatures Monitor : Cathy Ford Signature : RT Date : Time : [facility] [address] [place] [address]
--- NOTE | ~2017-11-16 | OP ---
PATIENT NAME: HESHAM CARUSO MEDICAL RECORD: [id number] :41 LOCATION:D.M2 D.2136 ADMISSION DATE:11/16/17 SURGEON: JIGNESH JACKSON MD DATE OF OPERATION: 11/17/2017 PROCEDURES: 1. PTCA and stent of left circumflex. 2. Left heart catheterization. 3. Selective coronary angiography. 4. Left ventriculogram. 5. Vein graft angiography. 6. RAMON angiography. 7. Renal angiography. 8. Aortofemoral runoff. 9. Abdominal aortography. INDICATION: Unstable angina, coronary artery disease, peripheral vascular disease. PROCEDURE IN DETAIL: After informed consent was obtained and after a detailed explanation of the risks, benefits as well as alternative therapies, the patient elected to proceed with angiogram and angioplasty. The right femoral area was prepped and draped in normal sterile fashion. Right femoral artery was cannulated via modified Seldinger technique with placement of 6-English sheath. All catheters exchanged through this sheath. FINDINGS: Abdominal aortography was performed. The catheter was pulled down for aortofemoral runoff. Abdominal aortography reveals an AAA stent graft that is well opposed with good flow. LEFT LEG: A. Iliac: The common iliac has continuation of the stent graft that is open; however, after this the left leg is closed. The distal left leg fills via collaterals. It appears that the superficial femoral system is moderately diffusely diseased, but patent. The infrapopliteal vessels appear diffusely diseased, but patent. RIGHT LEG: A. Iliac: The common internal and external iliacs have continuation of the stent graft, otherwise only moderate irregularities, but patent. B. Femoral system: The common and deep femoral are widely patent. Superficial femoral has a long area of total occlusion from the proximal aspect to the mid distal aspect. The mid distal vessel fills via collaterals of the deep femoral system. It is patent with moderate diffuse disease. Infrapopliteal vessels are patent with moderate diffuse disease. Left ventriculogram was performed in standard 30-degree MAGDALENO view, reveals global hypokinesis. Overall ejection fraction estimated at 30% to 35%. SELECTIVE CORONARY ANGIOGRAPHY: 1. Left main showed no significant angiographic disease. 2. Left anterior descending is totally occluded. 3. RAMON to the LAD is widely patent. Distal LAD is diffusely diseased, but widely patent. 4. The left circumflex does not appear to be grafted by a patent graft. At OPERATIVE REPORT [id number] HESHAM CARUSO CARLOTA this time, there is 90% stenosis times 2. 5. Right coronary is totally occluded. 6. RAMON to the distal right coronary is widely patent. Distal right coronary is diffusely diseased, but widely patent. PTCA AND STENT OF THE LEFT CIRCUMFLEX: The stents used were 3.0 x 28 and 2.5 x 8, both Promus stents. Result was 0% residual stenosis. OVERALL IMPRESSION: Successful PTCA and stent of the left circumflex going from 90% initial stenosis times 2 to 0% residual stenosis. TRANSINT:[id number] Voice Confirmation ID: [id number] DOCUMENT ID: [id number] JIGNESH JACKSON MD CC: [id number] DICTATION DATE: 11/17/17 1253 DEVELOPER PROVER UPHOLSTERING: 11/17/17 1406 ADM IN [facility] [address] [place] [address]
--- NOTE | ~2017-11-16 | EC ---
PATIENT:HESHAM CARUSO DATE OF SERVICE: 11/16/17 SEX: M MEDICAL RECORD: [id number] DATE OF : 41 LOCATION:D.M2 D.213 AGE OF PATIENT: 72 ADMISSION DATE: 11/16/17 REFERRING PHYSICIAN: INTERPRETING PHYSICIAN: JIGNESH WALTER MD ECHOCARDIOGRAM REPORT ECHO CHARGES 4 ECHO COMPLETE CLINICAL DIAGNOSIS: WI HX OF CABG/CAD ECHOCARDIOGRAPHIC MEASUREMENTS (adult normal given) AC root (d.<3.7cm) 3.8 cm LV Septum d (<1.2 cm> 1.5 cm Valve Excursion 2.0 cm LV Septum (systole) 1.9 cm Left Atria (s.<4.0cm> 5.7 cm LVPW d(<1.2cm) 1.5 cm RV (d.<2.3cm) 4.4 cm LVPW (sytole) 1.8 cm LV diastole(<5.6CM) 7.5 cm MV E-F(>70mm/sec) cm LV systole 6.4 cm LVOT Diameter 2.1 cm MV exc.(>10mm) 1.5 cm Est.ejection fraction (50-75%) % Pericardial Effusion N DOPPLER: LVIT cm/sec A 36.0 cm/sec E 88.0 cm/sec LA cm/sec RVSP 40 mmHg LVOT 107 cm/sec AOP1/2T m/s Asc. Ao 132 cm/sec RVOT cm/sec RA cm/sec PA cm/sec AV Gradient Peak 6.95 mmHg AV Mean 3.31 mmHg AV Area 2.9 cm MV Gradient Peak 6.02 mmHg MV Mean 1.98 mmHg MV Area cm COMMENTS: Brick Offbearer: Fan CASTRO Inker: 1 Dr. Walter TAPE# PACS DATE OF SERVICE: 11/17/2017 ECHOCARDIOGRAM DATE OF SERVICE: 11/17/2017 FINDINGS: 1. Left ventricular chamber size is dilated. Left ventricular systolic function is mild to moderately reduced, overall ejection fraction in the 40% range. ECHOCARDIOGRAM REPORT [id number] HESHAM CARUSO 2. Left atrium is enlarged at 5.7 cm. Right atrium and right ventricle chamber sizes are as well moderate to severely enlarged. 3. Valvular structures have normal structure and motion. 4. Doppler interrogation reveals mild mitral regurgitation, mild tricuspid regurgitation. No other valvular insufficiency or stenosis and pulmonary systolic pressure is estimated at 40 mmHg. 5. No evidence of pericardial effusion or left ventricular thrombus. TRANSINT:[id number] Voice Confirmation ID: [id number] DOCUMENT ID: [id number] JIGNESH WALTER MD CC: [id number] DICTATION DATE: 11/17/17 1340 DREDGE LEVER OPERATOR: 11/17/17 1426 ADM IN [facility] [address] [place] [address]
--- NOTE | ~2017-11-16 | HP ---
PATIENT: HESHAM CARUSO MEDICAL RECORD: [id number] ACCOUNT: [id number] LOCATION:[facility] D.2136 : 41 ADMISSION DATE: 11/16/17 HISTORY AND PHYSICAL EXAMINATION DIAGNOSES: 1. Non-Q-wave myocardial infarction. 2. Supraventricular tachycardia. 3. Atrial fibrillation. 4. Coronary artery disease. 5. Status post coronary bypass graft surgery times 2. 6. Peripheral vascular disease. 7. Abdominal aortic aneurysm repair. 8. Hypertension. 9. Hyperlipidemia. 10. Noninsulin-dependent diabetes. HISTORY OF PRESENT ILLNESS: This is a gentleman who presents with sudden onset of tachycardia, palpitations along with crushing chest pain. He did rule in for a myocardial infarction. He was in a supraventricular tachycardia, heart rates in the 180s. He received 1 DC cardioversion, it reverted him to atrial fibrillation in the 70s. The atrial fibrillation does not appear that it is new. He is on Coumadin for the dysrhythmia. His last bypass surgery was [facility] RAMON, which was in 1996. Bypass surgery before that was in the 1980s. PHYSICAL EXAMINATION: GENERAL APPEARANCE: Well-nourished, well-developed, appears stated age. Level of distress, comfortable. PSYCHIATRIC: Mental status, alert, normal affect. Orientation, oriented to time, place and person. EYES: Lids and conjunctiva, noninjected. No discharge, no pallor. ENT: Lips, teeth, gums, normal dentition. Oropharynx, no cyanosis, no pallor. NECK: Carotid arteries, bilateral normal upstroke, no bruits, no thrills. JUGULAR VEINS: No jugular venous pressure or distention. CERVICAL LYMPH NODES: Nontender, nonenlarged. THYROID: Not enlarged. Nontender. No nodules. LUNGS: Respiratory effort, unlabored. CHEST: Normal curvature. No thoracic deformity. No chest wall tenderness. Percussion, resonant. Auscultation, clear. No wheezes, no rales, no rhonchi. CARDIOVASCULAR: Precordial exam, nondisplaced. No heaves or pericardial thrills. Rate and rhythm, regular. Heart sounds, normal S1, normal S2. No S3, no gallop, no rub. Systolic murmur, not heard. Diastolic murmur, not heard. EXTREMITIES: No cyanosis, no edema. Peripheral pulses, full and equal in all extremities, except as noted. No bruits appreciated. ABDOMEN: Soft, nondistended. Normal aorta. No bruit. Nontender. No masses. Liver, nontender, no hepatomegaly. Spleen, nontender, no splenomegaly. MUSCULOSKELETAL: No joint tenderness. No joint swelling. No erythema. NEUROLOGICAL: Normal gait, normal strength, normal tone. SKIN: Warm and dry. OVERALL IMPRESSION: Non-Q-wave myocardial infarction with dysrhythmia problems, most likely he does have hemodynamically significant coronary artery disease. We will proceed with coronary angiography. Further care depends upon findings of the angiography. HISTORY AND PHYSICAL [id number] HESHAM CARUSO TRANSINT:[id number] Voice Confirmation ID: [id number] DOCUMENT ID: [id number] JIGNESH JACKSON MD CC: [id number] DICTATION DATE: 11/17/17807 DUMPER: 11/17/17 0832 ADM IN [facility] [address] [id number]
--- NOTE | ~2017-11-16 | DS ---
PATIENT:HESHAM CARUSO :41 MEDICAL RECORD: [id number] DISCHARGE SUMMARY ADMISSION DATE: 11/16/17 DISCHARGE DATE: 11/18/17 DISCHARGE DIAGNOSES: 1. Unstable angina. 2. Percutaneous transluminal coronary angioplasty and stent to the left circumflex this admission. 3. Coronary artery disease. 4. Peripheral vascular disease. 5. Supraventricular tachycardia. 6. Atrial fibrillation. HOSPITAL COURSE: This is a gentleman who presented with anginal symptomatology. He was found to have significant disease of the circumflex, underwent successful PTCA and stent of the circumflex. He was discharged home with the addition of Plavix to his medical regimen, continuing his warfarin. Will follow up with [facility] in 1 month. TRANSINT:[id number] Voice Confirmation ID: [id number] DOCUMENT ID: [id number] JIGNESH JACKSON MD CC: [id number] DICTATION DATE: 11/18/17 0941 EVENTS MANAGER: 11/19/17 0044 DIS IN 11/18/17 [address] [place] [address]
[2017-11-16 18:07] LABS: BASOPHILS 0.3 % (0-2); EOSINOPHILS 1.4 % (0-7); HEMATOCRIT 47.8 % (42.0-54.0); HEMOGLOBIN 16.1 g/dL (13.5-17.5); IMMATURE GRANULOCYTES 0.1 % (0-5); LYMPHOCYTES 24.7 % (15-50); MCH 30.3 pg (26.0-34.0); MCHC 33.7 g/dL (31.0-37.0); MCV 89.8 fL (80.0-100.0); MEAN PLATELET VOLUME 10.2 fL (7.4-10.4); MONOCYTES 9.6 % (2-11); NEUTROPHILS 63.9 % (40-80); PLATELET COUNT 200 10x3/uL (130-400); RBC 5.32 10x6/uL (4.20-6.10); WBC 7.8 10x3/uL (4.8-10.8)
[2017-11-16 18:27] LABS: INR 1.51 (0.85-1.17); PROTIME 17.7 SECONDS (11.6-15.0)
[2017-11-16 18:28] LABS: APTT 38.8 SECONDS (22.8-39.4)
[2017-11-16 18:41] LABS: ALBUMIN 3.8 g/dL (3.4-5.0); ALKALINE PHOSPHATASE 73 U/L (46-116); ALT (SGPT) 41 U/L (10-68); BILIRUBIN - TOTAL 0.72 mg/dL (0.2-1.3); CALC OSMOLALITY 276 mosm/kg (275-300); CALCIUM 9.2 mg/dL (8.5-10.1); CHLORIDE - SERUM 112 mmol/L (98-107); CREATININE - SERUM 1.4 mg/dL (0.6-1.3); GLUCOSE 220 mg/dL (74-106); POTASSIUM - SERUM 4.3 mmol/L (3.5-5.1); PROTEIN - SERUM 7.5 g/dL (6.4-8.2); SODIUM 134 mmol/L (136-145); UREA NITROGEN 19 mg/dL (7-18); eGFR NON AFRICAN AMERICAN 53 mL/min (90-120)
[2017-11-16 18:49] LABS: CKMB 1.4 U/L (0.0-3.6); CREATINE KINASE 93 UL (21-232); MAGNESIUM - SERUM 1.8 mg/dL (1.8-2.4)
[2017-11-16 18:54] LABS: TROPONIN-I < 0.017 ng/mL (0.000-0.060)
[2017-11-16 21:35] LABS: CKMB 2.4 U/L (0.0-3.6); CREATINE KINASE 69 UL (21-232)
[2017-11-17] MEDS ORDERED: LIPITOR20 MG PO (01:02)
[2017-11-17] MEDS ORDERED: NEURONTIN600 MG PO (01:03)
[2017-11-17] MEDS ORDERED: BAYER CHEWABLE81 MG PO (01:03)
[2017-11-17 02:15] VITALS: BMI 26.5
[2017-11-17 04:02] LABS: BASOPHILS 0.3 % (0-2); EOSINOPHILS 1.8 % (0-7); HEMATOCRIT 41.9 % (42.0-54.0); HEMOGLOBIN 13.8 g/dL (13.5-17.5); IMMATURE GRANULOCYTES 0.3 % (0-5); LYMPHOCYTES 23.5 % (15-50); MCHC 32.9 g/dL (31.0-37.0); MCV 91.1 fL (80.0-100.0); MEAN PLATELET VOLUME 10.6 fL (7.4-10.4); MONOCYTES 11.5 % (2-11); NEUTROPHILS 62.6 % (40-80); RDW 15.1 % (11.5-14.5); WBC 6.2 10x3/uL (4.8-10.8)
[2017-11-17 04:22] LABS: PLATELET COUNT 153 10x3/uL (130-400)
[2017-11-17 04:41] LABS: CALCIUM 8.6 mg/dL (8.5-10.1); CARBON DIOXIDE 27.3 mmol/L (21.0-32.0); CHLORIDE - SERUM 106 mmol/L (98-107); CKMB 3.9 U/L (0.0-3.6); CREATINE KINASE 80 UL (21-232); CREATININE - SERUM 1.1 mg/dL (0.6-1.3); MAGNESIUM - SERUM 1.7 mg/dL (1.8-2.4); SODIUM 140 mmol/L (136-145); UREA NITROGEN 16 mg/dL (7-18); eGFR NON AFRICAN AMERICAN 69 mL/min (90-120)
[2017-11-17 04:42] LABS: CALC OSMOLALITY 282 mosm/kg (275-300); GLUCOSE 152 mg/dL (74-106); POTASSIUM - SERUM 3.6 mmol/L (3.5-5.1); TROPONIN-I 1.646 ng/mL (0.000-0.060)
[2017-11-17 08:30] VITALS: BP 163/70
[2017-11-17 10:19] LABS: CKMB 3.7 U/L (0.0-3.6); CREATINE KINASE 76 UL (21-232)
[2017-11-17 10:23] LABS: TROPONIN-I 1.201 ng/mL (0.000-0.060)
[2017-11-17 11:53] VITALS: BP 148/75
[2017-11-17 20:00] VITALS: BP 115/95
[2017-11-18] VITALS: BP 120/75
[2017-11-18 04:00] VITALS: BP 123/69
[2017-11-18 08:05] VITALS: BP 133/71
[2017-11-18] MEDS ORDERED: PLAVIX75 MG PO (10:28)
== END 2017-11-18 12:51 | disposition home or self-care (01) | DRG 247 ==
LOC: D.ER 17:38 → OBSVTIME 21:21 → D.EDHOLD 21:21 → D.M2 21:21 → D.EDHOLD 21:21 → D.M2 21:51
PROVIDERS: Family Medicine; Internal Medicine Interventional Cardiology
PROC: B215YZZ Fluoroscopy of Left Heart using Other Contrast (ICD-10-PCS; 2017-11-17)
PROC: 027035Z Dilation of Coronary Artery, One Artery with Two Drug-eluting Intraluminal Devices, Percutaneous Approach (ICD-10-PCS; principal; 2017-11-17 14:00)
PROC: 4A023N7 Measurement of Cardiac Sampling and Pressure, Left Heart, Percutaneous Approach (ICD-10-PCS; 2017-11-17 14:00)
PROC: B211YZZ Fluoroscopy of Multiple Coronary Arteries using Other Contrast (ICD-10-PCS; 2017-11-17 14:00)
DX: I21.4 Non-ST elevation (NSTEMI) myocardial infarction (principal); I47.1 Supraventricular tachycardia; I48.91 Unspecified atrial fibrillation; I25.10 Atherosclerotic heart disease of native coronary artery without angina pectoris; I71.4 Abdominal aortic aneurysm, without rupture; I70.202 Unspecified atherosclerosis of native arteries of extremities, left leg; I70.291 Other atherosclerosis of native arteries of extremities, right leg; I10 Essential (primary) hypertension; E78.5 Hyperlipidemia, unspecified; E11.9 Type 2 diabetes mellitus without complications

== ENCOUNTER 2017-11-20 17:44 | Inpatient (IN) | payer MEDICARE, OTHER ==
[~2017-11-20] VITALS: Ht 188 cm; Wt 104.1 kg
--- NOTE | ~2017-11-20 | HEMODYNAMI ---
PATIENT:HESHAM CARUSO MEDICAL RECORD: [id number] : 41 [address] [id number] ADMISSION DATE: 11/20/17 Generatedon:11/22/201712:06 Patient name: HESHAM CARUSO Patient #: [id number] SSN: : 1945 Date of study: 11/22/2017 Page: Of Hemodynamic Procedure Report Patient Data Patient Demographics Procedure consent was obtained First Name: HESHAM Gender: Male Last Name: SHADY : 1945 [facility] Initial: CARLOTA Age: 72 year(s) Patient #: [id number] Race: Additional ID: [id number] Contact details Address: [address] [address] State: [place] City: [place] Zip code: [address] Past Medical History Allergies: No known allergies Admission Admission Data Admission Date: 11/20/2017 Admission Time: 20:12 Room #: [facility] Lab Results Lab Result Date: 11/17/2017 Lab Result Time: 0:00 Biochemistry Name Units Result Min Max BUN mg/dl 16 --(---*)-- 7 18 Creatinine mg/dl 1.1 --(--*-)-- 0.6 1.3 CBC Name Units Result Min Max Hemoglobin g/dl 13.8 --(*---)-- 13.5 17.5 Procedure Procedure Types Cath Procedure Diagnostic Procedure Temporary Pacemaker Cardioversion Procedure Description Procedure Date Procedure Date: 11/22/2017 Procedure Start Time: 11:46 Procedure End Time: 12:05 Procedure Staff Name Function Eldon Maria MD Performing Physician Martina Rasmussen RT Monitor Kane Suarez RN Nurse Berta Mckeon RT Scrub Procedure Data Cath Procedure Fluoroscopy Diagnostic fluoroscopy Total fluoroscopy Time: 0.5 time: 0.5 min min Diagnostic fluoroscopy Total fluoroscopy dose: 31 dose: 31 mGy mGy Contrast Material Contrast Material Type Amount (ml) Isovue 300 0 Entry Location Entry Primary Successful Side Size Upsize Upsize Entry Closure Succes sful Closure Location (Fr) 1 (Fr) 2 (Fr) Remarks Device Remarks Femoral Right 6 Fr Sheath WITH vein Short sutured TEMPORARY in PACEMAKER place Estimated blood loss: 5 ml Procedure Complications No complications Procedure Medications Medication Administration Route Dosage Oxygen NC 2 l/min Heparin Flush Bag added to field 1 bags (1000units/500ml NS) 0.9% NaCl I.V. 100 ml/hr Fentanyl I.V. 50 mcg Versed I.V. 1 mg Fentanyl I.V. 50 mcg Versed I.V. 1 mg Adenosine (mcg) I.V. 18 mg Hemodynamics Rest HGB: 13.8 (g/dl) Heart Rate: 143 (bpm) Snapshots Pre Cath Intra NCS Post Cath Vital Signs Time Heart Resp SPO2 etCO2 NIBP (mmHg) Rhythm Pain Sedation Rate (ipm) (%) (mmHg) Status Level (bpm) 11:33:57 143 11 98 0 147/104(117) NSR 0 (11) 10(A) , No pain 11:38:35 126 11 98 0 141/95(112) NSR 0 (11) 10(A) , No pain 11:43:10 138 9 95 0 131/91(102) NSR 0 (11) 10(A) , No pain 11:47:42 135 5 95 0 128/87(99) NSR 0 (11) 10(A) , No pain 11:52:17 135 9 85 0 136/89(101) NSR 0 (11) 10(A) , No pain 11:56:51 135 10 94 0 147/99(123) NSR 0 (11) 10(A) , No pain 12:02:09 137 6 97 0 136/99(114) NSR 0 (11) 10(A) , No pain Medications Time Medication Route Dose Verified Delivered Reason Notes Effe ctiveness by by 11:35:06 Oxygen NC 2 Eldon Middleton Per l/min St Leroy Suarez RN physician 11:35:14 Heparin Flush added 1 Eldon Middleton used for Bag to bags St Leroy Suarez RN procedure (1000units/500ml field NS) 11:35:25 0.9% NaCl I.V. 100 Eldon Middleton Per ml/hr St Leroy Suarez RN physician 11:46:18 Fentanyl I.V. 50 Eldon Kane Lobo RN sedation 11:46:25 Versed I.V. 1 mg Eldon Lobo RN sedation 11:52:29 Fentanyl I.V. 50 Eldon Lobo RN sedation 11:52:34 Versed I.V. 1 mg Eldon Lobo RN sedation 11:52:57 Adenosine (mcg) I.V. 18 mg Eldon Maria arrhythmia MD KEMP Procedure Log Time Note 11:11:11 Kane Suarez RN sent for patient. Start room use. 11:11:12 Time tracking: Call back 11:11:19 Plan of Care:Hemodynamics will remain stable., Cardiac rhythm will remain stable., Comfort level will be maintained., Respiratory function will remain adequate., Patient/ family verbilizes understanding of procedure., Procedure tolerated without complication., Recovers from procedure without complications.. 11:23:19 Patient received from CVICU to CCL 1 Alert and oriented. Tansferred to table in Supine position. 11:23:20 Warm blankets applied, and hamilton hugger turned on for patient comfort. 11:23:21 Correct patient and procedure confirmed by team. 11:23:22 Signed procedure consent form obtained from patient. 11:23:23 ECG and BP/O2 sat monitors applied to patient. 11:23:24 Full Disclosure recording started 11:33:08 Vital chart was started 11:33:28 PATIENT RHYTHM: SVT 11:33:39 H&P Date Dictated: 11/21/2017 Within 30 days and on chart.. 11:33:41 Pre-procedure instructions explained to patient. 11:33:41 Pre-op teaching completed and patient verbalized understanding. 11:33:44 Family in patients room. 11:33:46 Patient NPO since Midnight. 11:35:06 Oxygen 2 l/min NC was administered by Kane Suarez RN; Per physician; 11:35:10 Quick combo pads placed on patients chest and back. 11:35:14 Heparin Flush Bag (1000units/500ml NS) 1 bags added to field was administered by Kane Suarez RN; used for procedure; 11:35:25 0.9% NaCl 100 ml/hr I.V. was administered by Kane Suarez RN; Per physician; 11:35:34 Is patient on blood thinner?Yes 11:35:37 ACC The patient was administered the following blood thiners within the last 24 hours: ACCPlavix, Coumadin 11:35:39 Patient diabetic? No. 11:35:42 Previous problem with sedation/anesthesia? No ? 11:35:50 Snore? Yes 11:35:50 Sleep apnea? No 11:35:52 Deviated septum? No 11:35:52 Opens mouth fully? Yes 11:35:53 Sticks out tongue? Yes 11:35:55 Airway obstruction? No ? 11:35:57 Dentures? No ? 11:36:00 Pre procedure: right dorsailis pedis pulse 2+ Normal; easily identifiable; not easily obliterated 11:36:08 Patient pain scale 0/10 ?. 11:36:19 IV patent on arrival in left antecubital with 0.9% NaCl at [facility]. 11:36:21 Lab results completed and on chart. 11:36:24 Right groin area was prepped with chlora-prep and draped in sterile fashion 11:36:25 Alarms reviewed by R. N. 11:36:25 Sharps counted by scrub and verified by R.N. 11:36:31 Use device set Temporary Pacemaker 11:36:32 5Fr J Tip Temporary Pacing Catheter ([id number]) opened to sterile field. 11:36:33 SHEATH 6FR [place]mont ([id number]) opened to sterile field. 11:36:50 Medline Cath Pack ([id number]) opened to sterile field. 11:36:58 Bag Decanter (2002S) opened to sterile field. 11:37:12 Quick Combo opened to sterile field. 11:37:47 Baseline sample Acquired. 11:37:56 Physician paged 11:41:12 Final Timeout: patient, procedure, and site verified with staff and physician. All members of the team are in agreement. 11:41:19 Right groin site verified by team. 11:41:27 Physical assessment completed. ASA score P 3 - A patient with severe systemic disease as per Eldon Maria MD. 11:41:31 Sedation plan: IV Moderate Sedation Medication:Versed, Fentanyl 11:45:42 Procedure started. 11:46:18 Fentanyl 50 mcg I.V. was administered by Kane Suarez RN; for sedation; 11:46:25 Versed 1 mg I.V. was administered by Kane Suarez RN; for sedation; 11:46:28 Local anesthetic to right femoral vein with Lidocaine 2% by Eldon Maria MD.INITIAL ACCESS ONLY 11:47:21 A 6 Fr Short sheath was inserted into the Right Femoral vein 11:48:17 Temporary pacer inserted 11:49:32 Temporary pacer turned on with the following settings: Rate 150, MA 10, Mode: Demand. 11:49:37 Temporary pacer turn off 11:49:59 ATTEMPTING TO PACE PATIENT OUT OF SVT 11:50:16 Temporary pacer turned on with the following settings: Rate 160, MA 10, Mode: Demand. 11:50:22 Temporary pacer turn off 11:50:35 Temporary pacer turned on with the following settings: Rate 180, MA 10, Mode: Demand. 11:50:58 Temporary pacer turn off 11:51:29 PT CONVERTED FOR 2 BEATS BUT RETURNED TO SVT 11:51:33 Temporary pacer turned on with the following settings: Rate 180, MA 10, Mode: Demand. 11:52:00 Temporary pacer turn off 11:52:29 Fentanyl 50 mcg I.V. was administered by Kane Suarez RN; for sedation; 11:52:34 Versed 1 mg I.V. was administered by Kane Suarez RN; for sedation; 11:52:57 Adenosine (mcg) 18 mg I.V. was administered by Eldon Maria MD; for arrhythmia; 11:54:02 Defibrillator synced and charged to 200 Joules. 11:54:09 Shock delivered. 11:54:19 Unsuccessful cardioversion. 11:55:08 Sheath removed intact; hemostasis achieved with Sheath sutured in place to the Right Femoral vein. 11:55:15 Procedure ended.(Physican Out) :55:31 Fluoroscopy time 00.50 minutes. ::34 Flurop Dose total: 31 ::34 Fluoroscopy dose: 31 mGy 11:55:36 Contrast amount:Isovue 300 0ml. 11:55:38 Sharps counted by scrub and verified by R.N. 11:55:39 Insertion/operative site no bleeding no hematoma. 11:55:43 Post-op/insertion site Right Femoral vein dressed using a 4 x 4 and Tegaderm. 11:55:48 Post right femoral vein:stable, clean and dry 11:55:50 Post Procedure Pulses reassessed and unchanged 11:55:53 Post-procedure physical assessment completed. ASA score P 3 - A patient with severe systemic disease as per Eldon Maria MD. 11:55:55 Post procedure rhythm: unchanged. 11:55:58 Estimated blood loss: 5 ml 11:56:00 Post procedure instruction explained to patient.Patient verbalizes understanding. 11:56:00 Patient needs reinforcement of post procedure teaching. 11:56:26 Procedure Complication : No complications 11:57:14 2.0 Silk 685H opened to sterile field. 12:01:06 Procedure and supply charges have been captured, reviewed, submitted and are correct. 12:01:08 See physician's report for complete and final results. 12:01:27 Tegaderm 4 x 4 (1626W) opened to sterile field. 12:05:03 Vital chart was stopped 12:05:07 Report given to CVICU. 12:05:11 Patient transfered to CVICU with Bed. 12:05:20 Procedure ended. 12:05:20 Full Disclosure recording stopped 12:05:23 End room use (Document Last) Device Usage Item Name Manufacture Quantity Catalog Hospital Part Current Minima l Lot# / Number Charge Number Stock Stock Serial# Code 5Fr J Tip Garcia 1 [id number] [id number] 2 Temporary Lifesciences Pacing Catheter ([id number]) SHEATH 6FR Terumo 1 [id number] [id number] 587190 [id number] 40 [place]mont ([id number]) Medline Cardinal 1 [id number] 56561 273744 5 Cath Pack Health ([id number]) Bag Microtek 1 2001S [id number] 27420 559448 5 [employer] () [employer] 1 [id number] 200838 875935 082967 5 2-0 Silk Ethicon 1 685H 989554 06128 584858 5 685H Tegaderm 4 3M 1 1626W [id number] 141248 768319 5 x 4 (1626W) Signature Audit [place] Stage Time Signature Unsigned Intra-Procedure 11/22/2017 Martina 12:05:57 PM Counts RT(R) Signatures Monitor : Martina Signature : Counts RT Date : Time : [address] [place] [address]
--- NOTE | ~2017-11-20 | OP ---
PATIENT NAME: HESHAM CARUSO MEDICAL RECORD: [id number] :41 [facility] ADMISSION DATE:11/20/17 SURGEON: PRASHANT TOVAR MD DATE OF OPERATION: 11/22/2017 PROCEDURE: Cardioversion and temporary pacer. DESCRIPTION OF PROCEDURE: After right femoral vein was cannulated, the temporary pacer was placed in the RV apex without difficulty. We got excellent ventricular capture at 150, 160, and 180. We were able to overdrive pacing to narrow complex QRS; however, this only lasted for approximately 5 complexes. We attempted a cardioversion at 200 joules, again a short burst of normal sinus rhythm followed by a prompt recurrence of ventricular tachycardia, sustained monomorphic. IMPRESSION: Continued ventricular tachycardia. The patient on amiodarone, lidocaine, mexiletine at this point. We will attempt cardioversion overdrive pacing in the a.m. after continued loading of his Mexitil. Further recommendations based on clinical course. TRANSINT:[id number] Voice Confirmation ID: [id number] DOCUMENT ID: [id number] PRASHANT TOVAR MD at 0920 CC: [id number] DICTATION DATE: 11/22/17 1212 REMOTE MEDICAL CODER: 11/22/17 1614 DIS IN 11/25/17 [id number] [facility] [place] [address]
--- NOTE | ~2017-11-20 | DS ---
PATIENT:HESHAM CARUSO :41 MEDICAL RECORD: [id number] DISCHARGE SUMMARY ADMISSION DATE: 11/20/17 DISCHARGE DATE: 11/25/17 DATE OF ADMISSION: 11/20/2017 DATE OF TRANSFER: 11/25/2017 PROBLEM LISTS: 1. Sustained monomorphic V-tach. 2. Cardiomyopathy. 3. Coronary artery disease. BRIEF HISTORY AND HOSPITAL COURSE: A 72-year-old gentleman with history of cardiomyopathy, admitted with sustained monomorphic V-tach, underwent multiple attempts at temporary pacing. We were able to overdrive suppress his V-tach; however, unfortunately he would have prompt return of ventricular tachycardia. Discussed with Dr. Saturnino Winter in [place]. He was electively intubated in efforts to decrease his catecholamine drives. Discharged on Mexitil, lidocaine, amiodarone, and beta-blockade. Transferred in critical condition for higher level of electrophysiology care. TRANSINT:[id number] Voice Confirmation ID: [id number] DOCUMENT ID: [id number] PRASHANT TOVAR MD at 0920 CC: [id number] DICTATION DATE: 11/25/17 0823 ARTIST'S REPRESENTATIVE: 11/25/17 1303 DIS IN 11/25/17 [address] [place] [address]
--- NOTE | ~2017-11-20 | HP ---
PATIENT: HESHAM CARUSO MEDICAL RECORD: [id number] ACCOUNT: [id number] [facility] : 43 ADMISSION DATE: 11/20/17 HISTORY AND PHYSICAL EXAMINATION HISTORY OF PRESENT ILLNESS: A 72-year-old gentleman with known history of coronary artery disease, status post recent interventin, with ischemic cardiomyopathy, EF 35%. Had dizziness, lightheadedness. Found to be in VT, semi-stable, has been shocked twice after amiodarone loading. He is currently on amiodarone drip. Lidocaine has been started. We will attempt overdrive pacing. He is being brought to the lab on an urgent basis. Electrolytes have been normal. ALLERGIES: No known drug allergies. MEDICATIONS: Include clopidogrel 75 every day, warfarin per scale, atorvastatin 10 every day, fenofibrate 150 every day, metoprolol 50 every day, Neurontin 600 t.i.d., Glucotrol 10 every day. REVIEW OF SYSTEMS: The patient reports easy bruising but reports no swollen glands. The patient reports no fever, no night sweats, no significant weight gain, no significant weight loss. No significant exercise tolerance. The patient reports no dry eyes, no irritation, no vision change. Patient reports no difficulty hearing and no ear pain. Patient reports no frequent nose bleeds or nose and sinus problems. Patient reports on arm pain on exertion. No shortness of breath while lying down. No history of heart murmur. Patient reports no cough, no wheezing or coughing up blood. Patient reports no abdominal pain, no vomiting. Normal appetite. No diarrhea and not vomiting blood. No nausea and no constipation. Patient reports no incontinence. No difficulty urinating. No hematuria. No increased frequency. Patient reports no muscle aches. No weakness, no arthralgias, no back pain. No swelling of the extremities. Patient reports no abnormal mole, no jaundice, no rashes. Reports no loss of consciousness. No weakness and no numbness. No seizures, dizziness, or headaches. The patient reports no depression, no sleep disturbance, feeling safe in a relationship and no alcohol abuse. Patient reports on fatigue. Reports no runny nose or sinus pressure. No itching, no hives, and no frequent sneezing. PHYSICAL EXAMINATION: GENERAL: Comfortable appearing gentleman, in no acute distress. HEENT: Normocephalic, atraumatic. NECK: No bruits. HEART: Tachycardic, regular. LUNGS: Diminished air excursion. Few basal crackles. ABDOMEN: Soft, nontender. EXTREMITIES: Pulse 2+ with no edema. IMPRESSION: Intractable V-tach. We will attempt overdrive pacing. TRANSINT:[id number] Voice Confirmation ID: [id number] DOCUMENT ID: [id number] HISTORY AND PHYSICAL [id number] HESHAM CARUSO,PRASHANT Templeton MD at 0919 CC: [id number] DICTATION DATE: 11/21/17823 CUTTER HAND: 11/21/17 1124 DIS IN 11/25/17 [facility] [address] [place] [address]
--- NOTE | ~2017-11-20 | HEMODYNAMI ---
PATIENT:HESHAM CARUSO MEDICAL RECORD: [id number] : 41 [address] [id number] ADMISSION DATE: 11/20/17 Generatedon:11/24/201715:58 Patient name: HESHAM CARUSO Patient #: [id number] SSN: : 1945 Date of study: 11/24/2017 Page: Of Hemodynamic Procedure Report Patient Data Patient Demographics Procedure consent was obtained First Name: HESHAM Gender: Male Last Name: SHADY : 1945 [facility] Initial: CARLOTA Age: 72 year(s) Patient #: [id number] Race: Additional ID: [id number] Contact details Address: [place] [address] State: [place] City: [place] Zip code: [address] Past Medical History Allergies: No known allergies Admission Admission Data Admission Date: 11/20/2017 Admission Time: 20:12 Room #: [facility] Lab Results Lab Result Date: 11/24/2017 Lab Result Time: 0:00 Biochemistry Name Units Result Min Max BUN mg/dl 37 --(----)-* 7 18 Creatinine mg/dl 2 --(----)-* 0.6 1.3 CBC Name Units Result Min Max Hemoglobin g/dl 14.9 --(-*--)-- 13.5 17.5 Procedure Procedure Types Cath Procedure Diagnostic Procedure Temporary Pacemaker Sedation Charges Procedure Description Procedure Date Procedure Date: 11/24/2017 Procedure Start Time: 15:46 Procedure End Time: 15:55 Procedure Staff Name Function Eldon Maria MD Performing Physician Yael Krishnamurthy RT Monitor Berta Mckeon RT Scrub Sander Billings RN Nurse Procedure Data Cath Procedure Fluoroscopy Diagnostic fluoroscopy Total fluoroscopy Time: 0.6 time: 0.6 min min Diagnostic fluoroscopy Total fluoroscopy dose: 84 dose: 84 mGy mGy Contrast Material Contrast Material Type Amount (ml) Isovue 300 0 Entry Location Entry Primary Successful Side Size Upsize Upsize Entry Closure Succes sful Closure Location (Fr) 1 (Fr) 2 (Fr) Remarks Device Remarks Femoral Left 6 Fr artery Short Estimated blood loss: 5 ml Procedure Complications No complications Procedure Medications Medication Administration Route Dosage Oxygen NC 2 l/min Heparin Flush Bag added to field 1 bags (1000units/500ml NS) 0.9% NaCl I.V. 100 ml/hr Versed I.V. 1 mg Fentanyl I.V. 50 mcg Hemodynamics Rest HGB: 14.9 (g/dl) Heart Rate: 131 (bpm) Snapshots Pre Cath Intra NCS Post Cath Vital Signs Time Heart Resp SPO2 etCO2 NIBP (mmHg) Rhythm Pain Sedation Rate (ipm) (%) (mmHg) Status Level (bpm) 15:38:39 140 17 98 0 110/78(92) NSR 0 (11) 10(A) , No pain 15:43:38 138 16 80 0 109/78(88) NSR 0 (11) 9(A) , No pain 15:47:42 134 18 96 0 110/85(96) NSR 0 (11) 9(A) , No pain 15:51:48 135 19 100 0 108/79(88) NSR 0 (11) 9(A) , No pain 15:55:53 136 18 95 0 120/71(103) NSR 0 (11) 9(A) , No pain Medications Time Medication Route Dose Verified Delivered Reason Notes Effec tiveness by by 15:32:47 Oxygen NC 2 Eldon Sander Per l/min St Leroy cabello MD RN 15:32:54 Heparin Flush added 1 Eldon Sander used for Bag to bags [facility] Leroy Billings procedure (1000units/500ml [facility] RN NS) 15:33:03 0.9% NaCl I.V. 100 Eldon Sander Per ml/hr [facility] Leroy cabello MD RN 15:38:05 Fentanyl I.V. 50 Eldon Sander for mcg [facility] Leroy Billings sedation RN 15:38:42 Versed I.V. 1 mg Eldon Sander for [facility] Leroy Billings sedation release specialist Log Time Note 14:56:44 Informed consent obtained and on chart 14:57:12 Berta SLAUGHTER(R) sent for patient. Start room use. 14:57:13 Time tracking: Regular hours 14:57:17 Plan of Care:Hemodynamics will remain stable., Cardiac rhythm will remain stable., Comfort level will be maintained., Respiratory function will remain adequate., Patient/ family verbilizes understanding of procedure., Procedure tolerated without complication., Recovers from procedure without complications.. 15:32:25 Vital chart was started 15:32:47 Oxygen 2 l/min NC was administered by Sander Billings RN; Per physician; 15:32:54 Heparin Flush Bag (1000units/500ml NS) 1 bags added to field was administered by Sander Billings RN; used for procedure; 15:33:03 0.9% NaCl 100 ml/hr I.V. was administered by Sander Billings RN; Per physician; 15:33:39 Patient received from CVICU to CCL 2 Alert and oriented. Tansferred to table in Supine position. 15:33:42 Warm blankets applied, and hamilton hugger turned on for patient comfort. 15:33:42 Correct patient and procedure confirmed by team. 15:33:43 ECG and BP/O2 sat monitors applied to patient. 15:33:49 Baseline sample Acquired. 15:34:06 Full Disclosure recording started 15:34:10 H&P Date Dictated: 11/24/2017 Within 30 days and on chart.. 15:34:11 Pre-procedure instructions explained to patient. 15:34:12 Pre-op teaching completed and patient verbalized understanding. 15:34:13 Family in waiting room. 15:34:15 Patient NPO since Midnight. 15:34:29 Is the patient allergic to Iodine/contrast media? No. 15:34:30 Was the patient premedicated? No 15:36:36 Is patient on blood thinner?Yes 15:36:40 ACC The patient was administered the following blood thiners within the last 24 hours: ACCPlavix 15:36:46 Patient diabetic? No. 15:36:50 Previous problem with sedation/anesthesia? No ? 15:36:54 Snore? Yes 15:36:55 Sleep apnea? No 15:36:56 Deviated septum? No 15:36:56 Opens mouth fully? Yes 15:36:57 Sticks out tongue? Yes 15:37:00 Airway obstruction? No ? 15:37:02 Dentures? No ? 15:37:06 Pre procedure: right dorsailis pedis pulse 1+ Palpable, but thready & weak; easily obliterated 15:37:21 IV patent on arrival in left antecubital with 0.9% NaCl at O. 15:37:27 Lab results completed and on chart. 15:37:31 Left groin area was prepped with chlora-prep and draped in sterile fashion 15:37:32 Alarms reviewed by R. N. 15:37:32 Sharps counted by scrub and verified by R.N. 15:37:35 Physician arrived 15:37:36 --------ALL STOP TIME OUT------ 15:37:37 Final Timeout: patient, procedure, and site verified with staff and physician. All members of the team are in agreement. 15:37:39 Left groin site verified by team. 15:37:41 Physical assessment completed. ASA score P 2 - A patient with mild systemic disease as per Eldon Maria MD. 15:37:45 Sedation plan: IV Moderate Sedation Medication:Versed, Fentanyl 15:38:05 Fentanyl 50 mcg I.V. was administered by Sander Billings RN; for sedation; 15:38:05 Use device set Temporary Pacemaker 15:38:07 5Fr J Tip Temporary Pacing Catheter ([id number]) opened to sterile field. 15:38:08 SHEATH 6FR Phoenix ([id number]) opened to sterile field. 15:38:09 2-0 Silk 685H opened to sterile field. 15:38:42 Versed 1 mg I.V. was administered by Sander Billings RN; for sedation; 15:42:26 Lab Result : BUN 37 mg/dl 15:42:26 Lab Result : Hemoglobin 14.9 g/dl 15:42:26 Lab Result : Creatinine 2 mg/dl 15:42:57 Procedure started. 15:46:03 Local anesthetic to left femerol artery with Lidocaine 2% by Eldon Maria MD.INITIAL ACCESS ONLY 15:47:25 A 6 Fr Short sheath was inserted into the Left Femoral artery 15:48:03 Temporary pacer inserted 15:51:18 Dr. Maria attempting to train heart back into rythym with temp pacer 15:53:26 Unsuccessful 15:53:43 [address] sutured in place 15:53:49 Procedure ended.(Physican Out) 15:54:24 Fluoroscopy time 00.60 minutes. 15:54:43 Fluoroscopy dose: 84 mGy 15:54:43 Flurop Dose total: 84 15:54:46 Contrast amount:Isovue 300 0ml. 15:54:48 Sharps counted by scrub and verified by R.N. 15:54:50 Insertion/operative site no bleeding no hematoma. 15:55:03 Post left femerol artery:stable 15:55:05 Post Procedure Pulses reassessed and unchanged 15:55:08 Post procedure rhythm: unchanged. 15:55:10 Estimated blood loss: 5 ml 15:55:12 Post procedure instruction explained to patient.Patient verbalizes understanding. 15:55:28 Procedure type changed to Cath procedure, Diagnostic procedure, Temporary Pacemaker, Sedation Charges 15:55:29 Procedure and supply charges have been captured, reviewed, submitted and are correct. 15:55:33 Procedure Complication : No complications 15:55:35 Vital chart was stopped 15:55:37 See physician's report for complete and final results. 15:55:40 Report given to CVICU. 15:55:45 Patient transfered to CVICU with Stretcher. 15:55:48 Procedure ended. 15:55:48 Full Disclosure recording stopped 15:55:51 End room use (Document Last) Device Usage Item Name Manufacture Quantity Catalog Hospital Part Current Minimal Lot # / Number Charge Number Stock Stock Serial# Code 5Fr J Tip Garcia 1 [id number] 2 Temporary Lifesciences Pacing Catheter ([id number]) SHEATH 6FR Terumo 1 [id number] 40 Phoenix ([id number]) 2-0 Silk Ethicon 1 685H [id number] 5 685H Signature Audit [place] Stage Time Signature Unsigned Intra-Procedure 11/24/2017 Yael Krishnamurthy 3:58:51 PM RT(R) Signatures Monitor : Yael Krishnamurthy RT Signature : Date : Time : [facility] [address] [place] [address]
--- NOTE | ~2017-11-20 | HEMODYNAMI ---
PATIENT:HESHAM CARUSO MEDICAL RECORD: [id number] : 41 [address] [id number] ADMISSION DATE: 11/20/17 Generatedon:11/23/201712:18 Patient name: HESHAM CARUSO Patient #: [id number] SSN: : 1945 Date of study: 11/23/2017 Page: Of Hemodynamic Procedure Report Patient Data Patient Demographics Procedure consent was obtained First Name: HESHAM Gender: Male Last Name: SHADY : 1945 [facility] Initial: CARLOTA Age: 72 year(s) Patient #: [id number] Race: Additional ID: [id number] Contact details Address: [place] [address] State: [place] City: [place] Zip code: [address] Past Medical History Allergies: No known allergies Admission Admission Data Admission Date: 11/20/2017 Admission Time: 20:12 Room #: [facility] Lab Results Lab Result Date: 11/17/2017 Lab Result Time: 0:00 Biochemistry Name Units Result Min Max BUN mg/dl 16 --(---*)-- 7 18 Creatinine mg/dl 1.1 --(--*-)-- 0.6 1.3 CBC Name Units Result Min Max Hemoglobin g/dl 13.8 --(*---)-- 13.5 17.5 Procedure Procedure Types Cath Procedure Diagnostic Procedure Sedation Charges Moderate Sedation up to 15 minutes Procedure Description Procedure Date Procedure Date: 11/23/2017 Procedure Start Time: 11:33 Procedure End Time: 12:17 Procedure Staff Name Function Eldon Tovar MD Performing Physician Robinson Traylor RT Monitor Martina Rasmussen RT Scrub Sander Billings RN Nurse Procedure Data Cath Procedure Estimated blood loss: 0 ml Procedure Complications No complications Procedure Medications Medication Administration Route Dosage 0.9% NaCl I.V. 100 ml/hr Oxygen NC 2 l/min Versed I.V. 2 mg Fentanyl I.V. 100 mcg Versed I.V. 1 mg Narcan I.V. 0.4 mg unlisted medication I.V. 0.25 mg Hemodynamics Rest HGB: 13.8 (g/dl) Heart Rate: 133 (bpm) Snapshots Pre Cath Intra NCS Post Cath Vital Signs Time Heart Resp SPO2 etCO2 NIBP (mmHg) Rhythm Pain Sedation Rate (ipm) (%) (mmHg) Status Level (bpm) 11:17:20 142 14 95 0 139/97(132) VT 0 (11) 10(A) , No pain 11:21:59 141 13 92 0 141/98(117) VT 0 (11) 10(A) , No pain 11:26:39 141 14 92 0 134/89(128) VT 0 (11) 10(A) , No pain 11:31:14 141 14 93 0 134/100(109) VT 0 (11) 10(A) , No pain 11:35:48 141 13 94 0 131/98(107) VT 0 (11) 10(A) , No pain 11:47:08 96 11 89 0 192/108(152) VT 0 (11) 8(A) , No pain 11:51:49 100 15 83 0 170/123(151) VT 0 (11) 8(A) , No pain 11:56:25 122 13 68 0 151/97(119) NSR 0 (11) 8(A) , No pain 12:01:02 123 14 99 0 149/107(128) NSR 0 (11) 8(A) , No pain 12:06:09 123 15 99 0 155/114(128) VT 0 (11) 8(A) , No pain 12:10:48 134 20 0 163/111(126) VT 0 (11) 10(A) , No pain 12:15:28 136 17 96 0 159/111(127) VT 0 (11) 10(A) , No pain Medications Time Medication Route Dose Verified Delivered Reason Notes Effectiven ess by by 11:22:31 0.9% NaCl I.V. 100 Sander Sander Per ml/hr Awa Billings physician RN RN 11:23:02 Oxygen NC 2 Sander Sander Per l/min Awa Billings physician RN RN 11:36:14 Versed I.V. 2 mg Sander Sander for Awa Billings sedation RN RN 11:36:23 Fentanyl I.V. 100 Sander Sander for mcg Lorigan Lorigan sedation RN RN 11:38:11 Versed I.V. 1 mg Sander Sander for Lorigan Lorigan sedation RN RN 12:08:42 Narcan I.V. 0.4 Sander Sander Per mg Awa Billings physician RN RN 12:10:21 flumazenil I.V. 0.25 Sander Sander Per mg Awa Billings physician RN development director Log Time Note 10:59:19 Time tracking: Regular hours 10:59:23 Plan of Care:Hemodynamics will remain stable., Cardiac rhythm will remain stable., Comfort level will be maintained., Respiratory function will remain adequate., Patient/ family verbilizes understanding of procedure., Procedure tolerated without complication., Recovers from procedure without complications.. 10:59:27 Sander Billings RN sent for patient. Start room use. 11:00:02 Quick Combo opened to sterile field. 11:16:24 Patient received from Med II to CCL 1 Alert and oriented. Tansferred to table in Supine position. 11:16:26 Warm blankets applied, and hamilton hugger turned on for patient comfort. 11:16:26 Correct patient and procedure confirmed by team. 11:16:28 Signed procedure consent form obtained from patient. 11:16:30 ECG and BP/O2 sat monitors applied to patient. 11:16:33 Vital chart was started 11:17:36 Baseline sample Acquired. 11:17:56 RHYTHM MONOMORPHIC SUSTAINED VT 11:18:02 Full Disclosure recording started 11:18:10 H&P Date Dictated: 11/21/2017 Within 30 days and on chart., ER History on chart.. 11:18:11 Pre-procedure instructions explained to patient. 11:18:12 Pre-op teaching completed and patient verbalized understanding. 11:18:13 Family in waiting room. 11:18:15 Patient NPO since Midnight. 11:18:20 Is patient on blood thinner?No 11:18:30 Patient diabetic? No. 11:18:33 Previous problem with sedation/anesthesia? No ? 11:18:47 Snore? Yes 11:18:48 Sleep apnea? No 11:18:49 Deviated septum? No 11:18:50 Opens mouth fully? Yes 11:18:51 Sticks out tongue? Yes 11:18:53 Airway obstruction? No ? 11:18:56 Dentures? Yes ? 11:19:06 Patient pain scale 0/10 ?. 11:19:15 IV patent on arrival in left forearm with 0.9% NaCl at [facility]. 11:19:33 Right groin area was prepped with chlora-prep and draped in sterile fashion 11:19:34 Alarms reviewed by R. N. 11:19:34 Sharps counted by scrub and verified by R.N. 11:20:37 Final Timeout: patient, procedure, and site verified with staff and physician. All members of the team are in agreement. 11:20:40 Right Radial & Left Groin site verified by team. 11:21:05 PATIENT ARRIVED WITH TEMPORARY PACEMAKER CATHETER IN [facility]. 11:21:09 Physical assessment completed. ASA score P 3 - A patient with severe systemic disease as per Eldon Tovar MD. 11:21:13 Sedation plan: IV Moderate Sedation Medication:Versed, Fentanyl 11:22:31 0.9% NaCl 100 ml/hr I.V. was administered by Sander Billings RN; Per physician; 11:22:32 Quick combo pads placed on patients chest and back. 11:23:02 Oxygen 2 l/min NC was administered by Sander Billings RN; Per physician; 11:36:14 Versed 2 mg I.V. was administered by Sander Billings RN; for sedation; 11:36:23 Fentanyl 100 mcg I.V. was administered by Sander Billings RN; for sedation; 11:37:46 Temporary pacer turned on with the following settings: Rate 150, MA 10, Mode: Demand. 11:37:49 Temporary pacer turn off 11:38:10 Temporary pacer turned on with the following settings: Rate 160, MA 10, Mode: Demand. 11:38:11 Versed 1 mg I.V. was administered by Sander Billings RN; for sedation; 11:38:22 Temporary pacer turn off 11:38:49 Temporary pacer turned on with the following settings: Rate 200, MA 10, Mode: Demand. 11:39:05 Temporary pacer turn off 11:39:22 Temporary pacer turned on with the following settings: Rate 200, MA 10, Mode: Demand. 11:40:08 Temporary pacer turned on with the following settings: Rate 200, MA 10, Mode: Demand. 11:40:09 Temporary pacer turn off 11:40:49 MULTIPLE ATTEMPTS TO PACE PATIENT OUT OF S-VT 11:40:56 Patient cardioverted to sinus bradycardia. 11:41:26 Temporary pacer turned on with the following settings: Rate 45, MA 10, Mode: Demand. 11:41:40 Baseline sample Acquired. 11:42:14 Baseline sample Acquired. 11:45:37 Baseline sample Acquired. 11:47:08 Insertion/operative site no bleeding no hematoma. 11:48:30 TEMPORARY LEFT IN PER DR TOVAR. 11:49:09 Temporary pacer turned on with the following settings: Rate 50, MA 5, Mode: Demand. 11:49:39 Post-procedure physical assessment completed. ASA score P 2 - A patient with mild systemic disease as per Eldon Tovar MD. 11:49:43 Post procedure rhythm: unchanged. 11:49:48 Estimated blood loss: 0 ml 11:49:50 Post procedure instruction explained to patient.Patient verbalizes understanding. 11:49:50 Patient needs reinforcement of post procedure teaching. 11:50:41 AIRWAY Oral Sm Adult opened to sterile field. 11:50:46 PHYSICIAN WENT TO UPDATE FAMILY 11:52:49 Procedure Complication : No complications 11:52:51 See physician's report for complete and final results. 11:53:24 Baseline sample Acquired. 11:54:47 PATIENT WENT BACK INTO MONOMORPHIC SUSTAINED VT 12:01:16 PHYSICIAN RETURNED TO RESUME PROCEDURE 12:01:33 Temporary pacer turned on with the following settings: Rate 150, MA 10, Mode: Demand. 12:01:59 multiple attempts to pace patient out of S-VT 12:02:41 Patient cardioverted to sinus rhythm . 12:03:06 PATIENT REVERTED TO S-VT 12:04:17 MULTIPLE ATTEMPTS TO PACE PTIENT OUT OF S-VT 12:04:52 ATTEMPTS UNSUCCESSFUL 12:05:00 Procedure ended.(Physican Out) 12:08:10 PATIENT REMAINS IN S-VT 12:08:33 Procedure type changed to Cath procedure, Diagnostic procedure, Sedation Charges, Moderate Sedation up to 15 minutes 12:08:42 Narcan 0.4 mg I.V. was administered by Sander Billings RN; Per physician; 12:10:21 flumazenil 0.25 mg I.V. was administered by Sander Billings RN; Per physician; 12:11:20 Procedure and supply charges have been captured, reviewed, submitted and are correct. 12:16:52 Vital chart was stopped 12:16:55 Report given to CVICU. 12:17:11 Patient transfered to CVICU with Bed. 12:17:27 Procedure ended. 12:17:27 Full Disclosure recording stopped 12:17:32 End room use (Document Last) Device Usage Item Manufacture Quantity Catalog Hospital Part Current Minimal Lot # / Name Number Charge Number Stock Stock Ser ial# Code AIRWAY Brown RCI 1 [id number] 5 Oral Sm Adult Quick Edge Systems 1 [id number] 5 Combo Signature Audit [place] Stage Time Signature Unsigned Intra-Procedure 11/23/2017 Martina 12:18:28 PM Counts RT(R) Signatures Monitor : Robinson Traylor RT Signature : Date : Time : [place] [id number] [place] [address]
--- NOTE | ~2017-11-20 | HEMODYNAMI ---
PATIENT:HESHAM CARUSO MEDICAL RECORD: [id number] : 41 LOCATION:[facility]- ACC# [id number] ADMISSION DATE: 11/20/17 Generatedon:11/21/201710:11 Patient name: HESHAM CARUSO Patient #: [id number] SSN: : 1945 Date of study: 11/21/2017 Page: Of Hemodynamic Procedure Report Patient Data Patient Demographics Procedure consent was obtained First Name: HESHAM Gender: Male Last Name: SHADY : 1945 [facility] Initial: CARLOTA Age: 72 year(s) Patient #: [id number] Race: Additional ID: [id number] Contact details Address: [place] [address] State: [place] City: [place] Zip code: [address] Past Medical History Allergies: No known allergies Admission Admission Data Admission Date: 11/20/2017 Admission Time: 20:12 Room #: DT01 Lab Results Lab Result Date: 11/17/2017 Lab Result Time: 0:00 Biochemistry Name Units Result Min Max BUN mg/dl 16 --(---*)-- 7 18 Creatinine mg/dl 1.1 --(--*-)-- 0.6 1.3 CBC Name Units Result Min Max Hemoglobin g/dl 13.8 --(*---)-- 13.5 17.5 Procedure Procedure Types Cath Procedure Diagnostic Procedure Temporary Pacemaker Cardioversion Procedure Description Procedure Date Procedure Date: 11/21/2017 Procedure Start Time: 9:57 Procedure End Time: 10:10 Procedure Staff Name Function Eldon Maria MD Performing Physician Martina Rasmussen RT Monitor Kane Suarez RN Nurse Berta Mckeon RT Scrub Procedure Data Cath Procedure Fluoroscopy Diagnostic fluoroscopy Total fluoroscopy Time: 1 time: 1 min min Diagnostic fluoroscopy Total fluoroscopy dose: 50 dose: 50 mGy mGy Entry Location Entry Primary Successful Side Size Upsize Upsize Entry Closure Kelly ccessful Closure Location (Fr) 1 (Fr) 2 (Fr) Remarks Device Remarks Femoral Right 6 Fr Manual vein Short Compression Estimated blood loss: 5 ml Procedure Complications No complications Procedure Medications Medication Administration Route Dosage Oxygen NRB 15 l/min Heparin Flush Bag added to field 1 bags (1000units/500ml NS) 0.9% NaCl I.V. 100 ml/hr Fentanyl I.V. 50 mcg Versed I.V. 1 mg Fentanyl I.V. 50 mcg Versed I.V. 1 mg Hemodynamics Rest HGB: 13.8 (g/dl) Heart Rate: 159 (bpm) Snapshots Pre Cath Intra NCS Post Cath Vital Signs Time Heart Resp SPO2 NIBP (mmHg) Rhythm Pain Sedation Rate (ipm) (%) Status Level (bpm) 9:45:55 160 16 100 128/102(121) NSR 0 (11) 10(A) , No pain 9:50:34 158 15 100 135/101(121) NSR 0 (11) 10(A) , No pain 9:55:14 151 15 100 139/87(108) NSR 0 (11) 10(A) , No pain 9:59:51 150 16 100 122/86(102) NSR 0 (11) 10(A) , No pain 10:04:25 186 16 98 106/80(94) NSR 0 (11) 9(A) , No pain 10:09:37 146 16 99 130/94(104) NSR 0 (11) 9(A) , No pain Medications Time Medication Route Dose Verified Delivered Reason Notes Effec tiveness by by 9:46:22 Oxygen NRB 15 Eldon Middleton Per l/min St Leroy Suarez RN physician 9:46:32 Heparin Flush added 1 Eldon Middleton used for Bag to bags St Leroy Suarez RN procedure (1000units/500ml field NS) 9:46:42 0.9% NaCl I.V. 100 Eldon Middleton Per ml/hr St Leroy Suarez RN physician 9:56:15 Fentanyl I.V. 50 Eldon Middleton for [facility] Leroy Suarez RN sedation 9:56:22 Versed I.V. 1 mg Eldon Middleton for [facility] Leroy Suarez RN sedation 10:03:13 Fentanyl I.V. 50 Eldon Middleton for [facility] Leroy Suarez RN sedation 10:03:15 Versed I.V. 1 mg Eldon Middleton for [facility] Leroy Suarez RN sedation MD Procedure Log Time Note 9:21:07 Kane Suarez RN sent for patient. Start room use. 9:21:08 Time tracking: Call back 9:33:29 Plan of Care:Hemodynamics will remain stable., Cardiac rhythm will remain stable., Comfort level will be maintained., Respiratory function will remain adequate., Patient/ family verbilizes understanding of procedure., Procedure tolerated without complication., Recovers from procedure without complications.. 9:38:48 Patient received from ED to CCL 1 Alert and oriented. Tansferred to table in Supine position. 9:44:56 Warm blankets applied, and hamilton hugger turned on for patient comfort. 9:44:56 Correct patient and procedure confirmed by team. 9:44:58 Signed procedure consent form obtained from patient. 9:44:59 ECG and BP/O2 sat monitors applied to patient. 9:45:00 Vital chart was started 9:45:01 Full Disclosure recording started 9:45:29 patient rhythm: SVT 9:45:37 H&P Date Dictated: 11/21/2017 ER History on chart.. 9:45:39 Pre-procedure instructions explained to patient. 9:45:39 Pre-op teaching completed and patient verbalized understanding. 9:45:42 Family in patients room. 9:45:45 Patient NPO since Midnight. 9:46:03 Patient allergic to No known allergies 9:46:04 Is the patient allergic to Iodine/contrast media? Yes. 9:46:06 Is patient on blood thinner?Yes 9:46:10 ACC The patient was administered the following blood thiners within the last 24 hours: ACCPlavix, Coumadin 9:46:12 Patient diabetic? Yes. 9:46:22 Oxygen 15 l/min NRB was administered by Kane Suarez RN; Per physician; 9:46:23 Previous problem with sedation/anesthesia? No ? 9:46:23 Snore? Yes 9:46:24 Sleep apnea? No 9:46:25 Deviated septum? No 9:46:26 Opens mouth fully? Yes 9:46:26 Sticks out tongue? Yes 9:46:28 Airway obstruction? No ? 9:46:29 Dentures? No ? 9:46:32 Heparin Flush Bag (1000units/500ml NS) 1 bags added to field was administered by Kane Suarez RN; used for procedure; 9:46:35 Pre procedure: right dorsailis pedis pulse 2+ Normal; easily identifiable; not easily obliterated 9:46:36 Patient pain scale 0/10 ?. 9:46:42 0.9% NaCl 100 ml/hr I.V. was administered by Kane Suarez RN; Per physician; 9:46:43 IV patent on arrival in right antecubital with 0.9% NaCl at [facility]. 9:46:46 Lab results completed and on chart. 9:46:49 Right groin area was prepped with chlora-prep and draped in sterile fashion 9:46:50 Alarms reviewed by R. N. 9:46:51 Sharps counted by scrub and verified by R.N. 9:47:03 Medline Cath Pack ([id number]) opened to sterile field. 9:47:04 Bag Decanter (2002S) opened to sterile field. 9:47:31 Use device set Temporary Pacemaker 9:47:33 5Fr J Tip Temporary Pacing Catheter ([id number]) opened to sterile field. 9:47:35 SHEATH 6FR [place] ([id number]) opened to sterile field. 9:50:11 Physician paged 9:50:24 Baseline sample Acquired. 9:52:19 Procedure type changed to Cath procedure, Diagnostic procedure, Temporary Pacemaker, Cardioversion 9:54:59 Tegaderm 4 x 4 (1626W) opened to sterile field. 9:55:37 Final Timeout: patient, procedure, and site verified with staff and physician. All members of the team are in agreement. 9:55:39 Right groin site verified by team. 9:55:45 Physical assessment completed. ASA score P 3 - A patient with severe systemic disease as per Eldon Maria MD. 9:55:48 Sedation plan: IV Moderate Sedation Medication:Versed, Fentanyl 9:56:15 Fentanyl 50 mcg I.V. was administered by Kane Suarez RN; for sedation; 9:56:22 Versed 1 mg I.V. was administered by Kane Suarez RN; for sedation; 9:56:36 Patient arrived with External Defibrillator. 9:57:18 Procedure started. 9:57:30 Local anesthetic to right femoral vein with Lidocaine 2% by Eldon Maria MD.INITIAL ACCESS ONLY 9:58:50 A 6 Fr Short sheath was inserted into the Right Femoral vein 9:58:58 Temporary pacer inserted 10:03:01 Attempting to pace patient out of SVT. 10:03:13 Fentanyl 50 mcg I.V. was administered by Kane Suarez RN; for sedation; 10:03:15 Versed 1 mg I.V. was administered by Kane Suarez RN; for sedation; 10:03:16 Temporary pacer turned on with the following settings: Rate 180, MA 10, Mode: Demand. 10:03:37 Temporary pacer turn off 10:03:41 Temporary pacer turned on with the following settings: Rate 190, MA 5, Mode: Demand. 10:03:54 Temporary pacer turn off 10:04:08 Unable to pace patient out of SVT 10:04:58 Defibrillator synced and charged to 200 Joules. 10:05:08 Shock delivered. 10:05:32 Unsuccessful cardioversion. 10:06:12 Temporary pacer removed 10:06:32 Sheath removed intact; hemostasis achieved with Manual Compression to the Right Femoral vein. 10:06:37 Procedure ended.(Physican Out) 10:06:46 Fluoroscopy time 01.00 minutes. 10:06:49 Flurop Dose total: 50 10:06:49 Fluoroscopy dose: 50 mGy 10:08:36 Sharps counted by scrub and verified by R.N. 10:08:42 Insertion/operative site no bleeding no hematoma. 10:08:48 Post-op/insertion site Right Femoral vein dressed using a 4 x 4 and Tegaderm. 10:08:52 Post right femoral vein:stable, clean and dry 10:08:54 Post Procedure Pulses reassessed and unchanged 10:08:58 Post-procedure physical assessment completed. ASA score P 3 - A patient with severe systemic disease as per Eldon Maria MD. 10:09:01 Post procedure rhythm: unchanged. 10:09:03 Estimated blood loss: 5 ml 10:09:23 Post procedure instruction explained to patient.Patient verbalizes understanding. 10:09:24 Patient needs reinforcement of post procedure teaching. 10:09:31 Procedure Complication : No complications 10:09:33 See physician's report for complete and final results. 10:10:32 Procedure and supply charges have been captured, reviewed, submitted and are correct. 10:10:39 Vital chart was stopped 10:10:42 Report given to ED. 10:10:46 Patient transfered to ED with Stretcher. 10:10:48 Procedure ended. 10:10:48 Full Disclosure recording stopped 10:10:52 End room use (Document Last) Device Usage Item Name Manufacture Quantity Catalog Hospital Part Current Minimal L ot# / Number Charge Number Stock Stock Serial# Code Medline Cardinal 1 [id number] 5 [employer] ([id number]) Bag Microtek 1 [id number] 5 [employer] () 5Fr J Tip Garcia 1 [id number] 2 Temporary Lifesciences Pacing Catheter ([id number]) SHEATH 6FR Terumo 1 [id number] 40 [place] ([id number]) Tegaderm 4 3M 1 1626W 192823 [id number] 5 x 4 (1626W) Signature Audit [place] Stage Time Signature Unsigned Intra-Procedure 11/21/2017 Martina 10:11:08 AM Counts RT(R) Signatures Monitor : Martina Signature : Counts RT Date : Time : [address] [address]
--- NOTE | ~2017-11-20 | OP ---
PATIENT NAME: HESHAM CARUSO MEDICAL RECORD: [id number] :41 LOCATION:[facility] ADMISSION DATE:11/20/17 SURGEON: PRASHANT TOVAR MD DATE OF OPERATION: 11/21/2017 PROCEDURE: Temporary pacer cardioversion. DESCRIPTION OF PROCEDURE: After general sedation, temporary wire was placed into the RV apex without difficulty. We had good capture at ventricular paced rates, shortening cycle lengths up to 180-190 beats per minute; however, this would not terminate the ventricular tachycardia. A single synchronized shock was performed at 200 joules. This established normal sinus rhythm for approximately 10 complexes; however, he had prompt reversion to V-tach. At this point in time, felt continue loading with IV amiodarone, will add oral mexiletine as well as symptoms tolerate will probably load for longer and attempt this again in the next 24-48 hours. TRANSINT:[id number] Voice Confirmation ID: [id number] DOCUMENT ID: [id number] PRASHANT TOVAR MD at 0919 CC: [id number] DICTATION DATE: 11/21/17 1012 FINAL FINISHER: 11/21/17 1238 DIS IN 11/25/17 [facility] [address] [place] [address]
[~2017-11-20 17:44] MED LIST changes: +LIPITOR20 MG PO; +NEURONTIN600 MG PO
[2017-11-20 18:46] LABS: BASOPHILS 0.1 % (0-2); EOSINOPHILS 1.7 % (0-7); HEMATOCRIT 44.6 % (42.0-54.0); HEMOGLOBIN 14.8 g/dL (13.5-17.5); IMMATURE GRANULOCYTES 0.2 % (0-5); LYMPHOCYTES 14.8 % (15-50); MCHC 33.2 g/dL (31.0-37.0); MCV 90.5 fL (80.0-100.0); MEAN PLATELET VOLUME 10.3 fL (7.4-10.4); MONOCYTES 12.9 % (2-11); NEUTROPHILS 70.3 % (40-80); PLATELET COUNT 172 10x3/uL (130-400); RBC 4.93 10x6/uL (4.20-6.10); RDW 14.8 % (11.5-14.5); WBC 8.4 10x3/uL (4.8-10.8)
[2017-11-20 19:05] LABS: ALBUMIN 3.6 g/dL (3.4-5.0); ALKALINE PHOSPHATASE 61 U/L (46-116); ALT (SGPT) 28 U/L (10-68); BILIRUBIN - TOTAL 0.87 mg/dL (0.2-1.3); CALC OSMOLALITY 281 mosm/kg (275-300); CARBON DIOXIDE 24.5 mmol/L (21.0-32.0); CHLORIDE - SERUM 103 mmol/L (98-107); CREATININE - SERUM 1.3 mg/dL (0.6-1.3); GLUCOSE 188 mg/dL (74-106); POTASSIUM - SERUM 3.6 mmol/L (3.5-5.1); PROTEIN - SERUM 7.5 g/dL (6.4-8.2); SODIUM 138 mmol/L (136-145); UREA NITROGEN 14 mg/dL (7-18); eGFR NON AFRICAN AMERICAN 57 mL/min (90-120)
[2017-11-20 19:21] LABS: CHOL - HDL RATIO 3.4 ratio (2.3-4.9); CHOLESTEROL, TOTAL 119 mg/dL (0-200); CKMB 1.2 U/L (0.0-3.6); CREATINE KINASE 57 UL (21-232); HDL CHOLESTEROL 35 mg/dL (32-96); LDL CHOLESTEROL 58 mg/dL (0-100); LDL-HDL RATIO 1.7 ratio (1.5-3.5); TRIGLYCERIDE 133 mg/dL (30-200)
[2017-11-20 19:41] LABS: TROPONIN-I 0.346 ng/mL (0.000-0.060)
[2017-11-21] VITALS (15 sets, daily range): BP systolic 120–145; BP diastolic 79–93; BMI 26.5
[2017-11-22] VITALS (23 sets, daily range): BP systolic 114–148; BP diastolic 80–105
[2017-11-22 06:19] LABS: BASOPHILS 0.1 % (0-2); EOSINOPHILS 0.6 % (0-7); HEMATOCRIT 43.4 % (42.0-54.0); HEMOGLOBIN 14.4 g/dL (13.5-17.5); IMMATURE GRANULOCYTES 0.3 % (0-5); LYMPHOCYTES 8.5 % (15-50); MCH 29.9 pg (26.0-34.0); MCHC 33.2 g/dL (31.0-37.0); MCV 90.2 fL (80.0-100.0); MEAN PLATELET VOLUME 10.2 fL (7.4-10.4); MONOCYTES 12.8 % (2-11); NEUTROPHILS 77.7 % (40-80); PLATELET COUNT 193 10x3/uL (130-400); RBC 4.81 10x6/uL (4.20-6.10); RDW 15.1 % (11.5-14.5)
[2017-11-22 06:23] LABS: WBC 13.5 10x3/uL (4.8-10.8)
[2017-11-22 06:33] LABS: ALBUMIN 3.2 g/dL (3.4-5.0); ANION GAP 17.2 mmol/L (8-16); BILIRUBIN - TOTAL 0.91 mg/dL (0.2-1.3); CALCIUM 8.7 mg/dL (8.5-10.1); CARBON DIOXIDE 20.7 mmol/L (21.0-32.0); CREATININE - SERUM 1.1 mg/dL (0.6-1.3); POTASSIUM - SERUM 3.9 mmol/L (3.5-5.1); PROTEIN - SERUM 7.1 g/dL (6.4-8.2)
[2017-11-23] VITALS (23 sets, daily range): BP systolic 114–142; BP diastolic 84–103; Ht 188 cm; Wt 104.1 kg
[2017-11-23 02:36] LABS: BASOPHILS 0.1 % (0-2); EOSINOPHILS 0.1 % (0-7); HEMATOCRIT 43.4 % (42.0-54.0); HEMOGLOBIN 14.3 g/dL (13.5-17.5); IMMATURE GRANULOCYTES 0.4 % (0-5); LYMPHOCYTES 5.7 % (15-50); MCH 30.3 pg (26.0-34.0); MCHC 32.9 g/dL (31.0-37.0); MCV 91.9 fL (80.0-100.0); NEUTROPHILS 82.7 % (40-80); RBC 4.72 10x6/uL (4.20-6.10); RDW 15.3 % (11.5-14.5); WBC 13.5 10x3/uL (4.8-10.8)
[2017-11-23 02:55] LABS: PLATELET COUNT 244 10x3/uL (130-400)
[2017-11-23 03:00] LABS: ALBUMIN 3.1 g/dL (3.4-5.0); ANION GAP 17.5 mmol/L (8-16); BILIRUBIN - TOTAL 0.7 mg/dL (0.2-1.3); CALCIUM 8.5 mg/dL (8.5-10.1); CARBON DIOXIDE 20.7 mmol/L (21.0-32.0); CREATININE - SERUM 1.2 mg/dL (0.6-1.3); POTASSIUM - SERUM 4.2 mmol/L (3.5-5.1)
[2017-11-23 10:04] LABS: CREATINE KINASE 37 UL (21-232)
[2017-11-23 10:14] LABS: CKMB 3.4 U/L (0.0-3.6); TROPONIN-I 0.223 ng/mL (0.000-0.060)
[2017-11-24] VITALS (24 sets, daily range): BP systolic 88–125; BP diastolic 63–95
[2017-11-24 01:10] LABS: HEMATOCRIT 43.3 % (42.0-54.0); HEMOGLOBIN 14.4 g/dL (13.5-17.5); MCH 30.3 pg (26.0-34.0); MCHC 33.3 g/dL (31.0-37.0); MEAN PLATELET VOLUME 10.6 fL (7.4-10.4); RBC 4.76 10x6/uL (4.20-6.10); RDW 15.4 % (11.5-14.5); WBC 18.1 10x3/uL (4.8-10.8)
[2017-11-24 06:17] LABS: BASOPHILS 0.1 % (0-2); EOSINOPHILS 0 % (0-7); HEMATOCRIT 44.4 % (42.0-54.0); HEMOGLOBIN 14.9 g/dL (13.5-17.5); IMMATURE GRANULOCYTES 0.5 % (0-5); LYMPHOCYTES 8.1 % (15-50); MCH 30.5 pg (26.0-34.0); MCHC 33.6 g/dL (31.0-37.0); MCV 90.8 fL (80.0-100.0); MEAN PLATELET VOLUME 10.3 fL (7.4-10.4); MONOCYTES 8.6 % (2-11); NEUTROPHILS 82.7 % (40-80); PLATELET COUNT 309 10x3/uL (130-400); RBC 4.89 10x6/uL (4.20-6.10); RDW 15.5 % (11.5-14.5); WBC 16.6 10x3/uL (4.8-10.8)
[2017-11-24 06:41] LABS: ALBUMIN 3.1 g/dL (3.4-5.0); ANION GAP 19.3 mmol/L (8-16); BILIRUBIN - TOTAL 0.95 mg/dL (0.2-1.3); CALCIUM 8.9 mg/dL (8.5-10.1); CARBON DIOXIDE 21.3 mmol/L (21.0-32.0); POTASSIUM - SERUM 4.6 mmol/L (3.5-5.1); PROTEIN - SERUM 7.2 g/dL (6.4-8.2)
[2017-11-25] VITALS (9 sets, daily range): BP systolic 88–97; BP diastolic 63–72
[2017-11-25 02:35] LABS: BASOPHILS 0.2 % (0-2); EOSINOPHILS 0 % (0-7); HEMATOCRIT 42.2 % (42.0-54.0); HEMOGLOBIN 14.1 g/dL (13.5-17.5); IMMATURE GRANULOCYTES 0.3 % (0-5); LYMPHOCYTES 9.7 % (15-50); MCH 29.9 pg (26.0-34.0); MCHC 33.4 g/dL (31.0-37.0); MCV 89.4 fL (80.0-100.0); MEAN PLATELET VOLUME 10.2 fL (7.4-10.4); MONOCYTES 11.9 % (2-11); NEUTROPHILS 77.9 % (40-80); RBC 4.72 10x6/uL (4.20-6.10); RDW 15.2 % (11.5-14.5)
[2017-11-25 02:37] LABS: PLATELET COUNT 242 10x3/uL (130-400)
[2017-11-25 02:42] LABS: ALBUMIN 2.7 g/dL (3.4-5.0); ANION GAP 17.6 mmol/L (8-16); BILIRUBIN - TOTAL 0.88 mg/dL (0.2-1.3); CALCIUM 8.1 mg/dL (8.5-10.1); CARBON DIOXIDE 21.1 mmol/L (21.0-32.0); POTASSIUM - SERUM 4.7 mmol/L (3.5-5.1); PROTEIN - SERUM 6.2 g/dL (6.4-8.2)
== END 2017-11-25 08:30 | disposition short-term general hospital (02) | DRG 308 ==
LOC: D.ER 17:44 → D.CVICU 20:12 → D.EDHOLD 20:12 → D.CVICU 11-21 13:22
PROVIDERS: Emergency Medicine; Internal Medicine Interventional Cardiology; Internal Medicine Nephrology
PROC: 5A1223Z Performance of Cardiac Pacing, Continuous (ICD-10-PCS; principal; 2017-11-21 10:00)
PROC: 5A1223Z Performance of Cardiac Pacing, Continuous (ICD-10-PCS; 2017-11-22 11:30)
PROC: 0BH17EZ Insertion of Endotracheal Airway into Trachea, Via Natural or Artificial Opening (ICD-10-PCS; 2017-11-24)
PROC: 5A1935Z Respiratory Ventilation, Less than 24 Consecutive Hours (ICD-10-PCS; 2017-11-24)
DX: I47.2 Ventricular tachycardia (principal); J96.90 Respiratory failure, unspecified, unspecified whether with hypoxia or hypercapnia; I25.5 Ischemic cardiomyopathy; I25.10 Atherosclerotic heart disease of native coronary artery without angina pectoris; E11.22 Type 2 diabetes mellitus with diabetic chronic kidney disease; I12.9 Hypertensive chronic kidney disease with stage 1 through stage 4 chronic kidney disease, or unspecified chronic kidney disease; N18.3 Chronic kidney disease, stage 3 (moderate); Z95.5 Presence of coronary angioplasty implant and graft; Z86.73 Personal history of transient ischemic attack (TIA), and cerebral infarction without residual deficits; Z95.1 Presence of aortocoronary bypass graft

== ENCOUNTER 2018-10-20 00:11 | Emergency (ER) | payer MEDICARE, OTHER ==
[~2018-10-20] VITALS: Ht 188 cm; Wt 95.5 kg
[2018-10-20 00:17] VITALS: Ht 188 cm; Wt 95.5 kg
[2018-10-20 01:17] LABS: APPEARANCE CLEAR (CLEAR); COLOR YELLOW (YELLOW); NITRITE NEGATIVE (NEGATIVE); PROTEIN TRACE mg/dL (NEGATIVE)
[2018-10-20 01:18] LABS: BILIRUBIN NEGATIVE (NEGATIVE); GLUCOSE 250 mg/dL (NEGATIVE); KETONE NEGATIVE (NEGATIVE); UROBILINOGEN NORMAL (NORMAL)
[2018-10-20 01:20] VITALS: BP 154/77
== END 2018-10-20 01:20 | disposition home or self-care (01) ==
LOC: D.ER 00:11
PROVIDERS: Family Medicine
DX: R33.9 Retention of urine, unspecified (principal); Z86.73 Personal history of transient ischemic attack (TIA), and cerebral infarction without residual deficits; E11.9 Type 2 diabetes mellitus without complications; I10 Essential (primary) hypertension

== ENCOUNTER 2018-11-30 06:35 | Day surgery (SDC) | payer MEDICARE, OTHER ==
[2018-11-29 11:16] LABS: HEMATOCRIT 42.1 % (42.0-54.0); HEMOGLOBIN 13.7 g/dL (13.5-17.5); MCH 29.8 pg (26.0-34.0); MCHC 32.5 g/dL (31.0-37.0); MCV 91.5 fL (80.0-100.0); MEAN PLATELET VOLUME 9.9 fL (7.4-10.4); RBC 4.6 10x6/uL (4.20-6.10); RDW 15.5 % (11.5-14.5); WBC 6.8 10x3/uL (4.8-10.8)
[2018-11-29 11:30] LABS: ANION GAP 10.6 mmol/L (8-16); CALCIUM 8.8 mg/dL (8.5-10.1); CARBON DIOXIDE 27.4 mmol/L (21.0-32.0); CREATININE - SERUM 1.4 mg/dL (0.6-1.3)
[~2018-11-30] VITALS: Ht 188 cm; Wt 93.9 kg
[~2018-11-30 06:35] MED LIST changes: +BETAPACE 80 MG80 MG PO; +COREG12.5 MG PO; +ZESTRIL10 MG PO
[2018-11-30 07:42] VITALS: BP 131/67; Ht 188 cm; Wt 93.9 kg
--- NOTE | 2018-11-30 10:41 | OP ---
PATIENT NAME: HESHAM CARUSO MEDICAL RECORD: [id number] :41 LOCATION:D.OPS ADMISSION DATE: SURGEON: JALIL BEDOYA MD DATE OF OPERATION: 11/30/2018 SURGEON: Jalil Bedoya MD ANESTHESIA: TIVA by Jermain Gomez MD PREOPERATIVE DIAGNOSIS: Elevated PSA of 3.66 on 04/02/2017 and urinary retention. PROCEDURE: Cystoscopy and transrectal ultrasound and prostate biopsy. FINDINGS: A 41 gram prostate on the transrectal ultrasound. There are intraprostatic stones in the hypoechoic area in the left mid pole anterior portion of the prostate. On cystoscopy, he has no urethral strictures. The prostatic lateral lobes are not obstructive. There was a somewhat elevated bladder neck, but it also does not appear to be obstructive. There are single ureteral orifices on each side and no bladder tumors were seen. 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 SPECIMENS: Prostate biopsy cores. BLOOD LOSS: None. CLINICAL HISTORY: This is a 73-year-old male, who has diabetes mellitus type 2. He is in urinary retention and he has an indwelling Peguero catheter. His PSA was elevated at 3.66. On rectal examination, I did not feel any nodules. He comes to have a prostate biopsy. I will also be performing cystoscopy to determine what the prostatic anatomy is. This was in anticipation of his needing a UroLift procedure in the future. He is not allergic to any medications. He was given Ancef administrative personal assistant to the OR. DESCRIPTION OF PROCEDURE: The patient's Peguero catheter was removed. He was given IV sedation and he was placed in the dorsal lithotomy position. He was prepped and draped. The cystoscope was passed into the urethra and the findings are as outlined above. The bladder was then emptied through the cystoscope sheath and the scope was removed. We then introduced the transrectal ultrasound probe and obtained prostate size measurements. We obtained a size of 41 grams or mL for the prostate volume. Hypoechoic areas were seen in the anterior mid prostate. This was on the left side. We then performed sextant biopsies with at least 3 cores from each sextant. Once all the specimens were obtained, the procedure was terminated. A new 16-Norwegian Peguero catheter was inserted into the bladder. I will have him go to [place] to [facility] for urodynamic testing. He may have an atonic bladder due to his diabetes mellitus type 2 and that could be the reason why he is in urinary retention. TRANSINT:[id number] Voice Confirmation ID: [id number] DOCUMENT ID: [id number] OPERATIVE REPORT [id number] HESHAM CARUSO ROBERT S MD at 1041 CC: [id number] DICTATION DATE: 11/30/18930 ASSISTANT PROPERTY MANAGER: 11/30/18 [id number] [place] [address]
== END 2018-11-30 10:30 | disposition home or self-care (01) ==
LOC: D.OPS 06:35 → D.PAN 08:20 → D.OPS 08:30 → D.PAN 10:00 → D.OPS 10:30
PROVIDERS: Anesthesiology; ATTEND Urology
DX: R97.20 Elevated prostate specific antigen [PSA] (principal); R33.9 Retention of urine, unspecified; E11.9 Type 2 diabetes mellitus without complications; Z01.812 Encounter for preprocedural laboratory examination

== ENCOUNTER → 2019-05-10 11:50 | Outpatient (CLI) | payer MEDICARE, OTHER ==
[2018-11-30 07:42] VITALS: BMI 26.6
== END | disposition home or self-care (01) ==
LOC: D.CT 11:50
PROVIDERS: ATTEND Internal Medicine Cardiovascular Disease
DX: I71.4 Abdominal aortic aneurysm, without rupture (principal)

== ENCOUNTER → 2020-05-17 11:21 | Outpatient (CLI) | payer MEDICARE, OTHER ==
[2018-11-30 07:42] VITALS: BMI 26.6
== END | disposition home or self-care (01) ==
LOC: D.CT 11:21
PROVIDERS: ATTEND Internal Medicine Cardiovascular Disease
DX: I70.202 Unspecified atherosclerosis of native arteries of extremities, left leg (principal); I71.4 Abdominal aortic aneurysm, without rupture